=== PATIENT | female | born 1950 | race Caucasian/White ===

== ENCOUNTER 2020-10-13 10:46 | Outpatient (CLI) | payer MEDICARE, SELFPAY ==
--- NOTE | ~2020-10-13 | MM_ITS ---
EXAMINATION: MM screening bertha BI w nataliya HISTORY: Screening mammogram TECHNIQUE: Craniocaudal and mediolateral oblique 3-D tomosynthesis images were obtained and synthetic 2-D images were generated. CAD analysis was submitted and interpreted. COMPARISON: August 24, 2018 diagnostic left digital mammogram and limited left breast ultrasound 06/12/2018 bilateral digital screening mammogram BREAST PARENCHYMAL COMPOSITION: There are scattered areas of fibroglandular density. FINDINGS: Benign appearing stable right axillary tail lymph and stable benign-appearing likely intram ammary lymph node in the posterior upper outer left breast, both unchanged since 06/12/2018. Scattered bilateral benign calcifications. There is no evidence of suspicious mass, calcification, or architectural distortion to suggest malig eli in either breast. There has been no suspicious interval change. IMPRESSION: 1. No mammographic evidence of malignancy. 2. Recommend routine screening mammography in one year. BI-RADS Category 2: Benign finding(s). Reviewed, dictated and finalized at location A.
--- NOTE | ~2020-10-13 | DEXA_ITS ---
Bone Density Report Name: Rachael Segovia Age: 70 Sex: Female Ethnicity: White Date of : 1950 Indication: postmenopausal; hysterectomy; Referring Provider: DANIEL BLACK Study: Bone densitometry was performed. Exam Date: October 13, 2020 Accession number: [id number] Bone Density: Region BMD T-score Z-score Classification AP Spine (L1-L4) 1.038 -0.1 2.2 Normal Femoral Neck (Left) 0.748 -0.9 1.0 Normal Total Hip (Left) 0.926 -0.1 1.5 Normal Total Hip Bilateral Avg 0.920 -0.2 1.5 Normal Femoral Neck (Right) 0.750 -0.9 1.0 Normal Total Hip (Right) 0.912 -0.2 1.4 Normal World Health Organization criteria for BMD impression classify patients as: Normal (T-score at or above -1.0), Osteopenia (T-score between -1.0 and -2.5), or Osteoporosis (T-score at or below -2.5). 10-year Fracture Risk: FRAX not reported because: All T-scores for Spine Total, Hip Total, Femoral Neck at or above -1.0 Previous Exams: Region Exam Age BMD T-score BMD Change BMD Change Date g/cm2 vs Baseline vs Previous AP Spine(L1-L4) 10/13/2020 70 1.038 -0.1 0.055(5.6%)* 0.055(5.6%)* 06/12/2018 67 0.983 -0.6 Total Hip(Left) 10/13/2020 70 0.926 -0.1 -0.002(-0.2%) -0.002(-0.2%) 06/12/2018 67 0.928 -0.1 Total Hip(Right) 10/13/2020 70 0.912 -0.2 -0.029(-3.0%)* -0.029(-3.0%)* 06/12/2018 67 0.940 0.0 *Denotes significance at 95% confidence level, LSC for AP Spine = 0.022 g/cm2, LSC for Total Hip = 0.027 g/cm2 Clinical Information Provided by Patient: Has the following medical conditions: Hysterectomy Patient maximum height was 62 Menopause Age: 43 Drinks caffeinated beverages Onset of menses at age 11 Number of children 2 Impression: The patient has normal bone mass. The BMD for the Total Hip(Right) decreased, changing by -3.0% since the last DXA exam. Discussion: BONE DENSITY IS ABOVE THE MINIMUM DESIRABLE LEVEL AT ALL SKELETAL SITES TESTED. This patient?s bone mineral density is above the minimum desirable level (T-score -1.0 or better) at all sites measured. The patient should follow a healthful lifestyle (good nutrition with adequate calcium and vitamin D, and appropriate weight-bearing exercise). Follow-Up: Consider repeating this study in 3 to 4 years to reassess this patient's status, or sooner if there is some new clinical indication. Reported by: [facility] on 10/13/2020 11:15:00 AM. Reviewe
--- NOTE | ~2020-10-13 | XR_ITS ---
XR hip BI 2V w AP pelvis DATE: 10/13/2020 12:12 INDICATION: Right greater than left hip pain for past 2 to 3 years TECHNIQUE: AP pelvis. AP and lateral views of each hip. COMPARISON: None FINDINGS: There is minimal levoscoliosis of the lumbar spine. No pelvic fracture or bone destruction. The pubic symphysis and sacroiliac joints are intact. There is prominent bilateral hip osteoarthritis, more severe on the right, including joint space narr owing and spurring. No fracture or dislocation, avascular necrosis or bone destruction of either hip is evident. IMPRESSION: Prominent right greater than left hip osteoarthritis Reviewed, dictated and finalized at location A.
== END 2020-10-13 10:47 | disposition home or self-care (01) ==
PROVIDERS: PCP Emergency Medicine; Visit Provider Emergency Medicine
DX: Z12.31 Encounter for screening mammogram for malignant neoplasm of breast (principal); Z78.0 Asymptomatic menopausal state; M16.0 Bilateral primary osteoarthritis of hip
CPT/HCPCS: 73521; 77063; 77067; 77080

== ENCOUNTER 2022-03-12 00:17 | Day surgery (SDC) | payer MEDICARE, SELFPAY ==
[2022-02-26 14:00] VITALS: BMI 27.3
[2022-03-12 11:12] VITALS: BP 143/82; PULSE 93; RESP 18; TEMP 36.7; O2SAT 100; BMI 26.1
--- NOTE | 2022-03-12 11:24 | PM.HPGS ---
History of Present Illness History of Present Illness Consent: Risks, benefits, and alternatives have been discussed and questions answered. Patient agrees to proceed with procedure. Chief complaint: positive cologuard Narrative: Rachael Segovia is a 71 year old female here for first colonoscopy, had + cologuard Review of Systems Constitutional: Constitutional: Denies headache(s) and Denies weakness Eyes: Eyes: Denies blurry vision ENT: Reports Normal hearing present, Denies headache(s) and Denies neck pain Cardiovascular: Cardiovascular: Denies chest pain and Denies dyspnea Respiratory: Respiratory: Denies dyspnea Gastrointestinal: Gastrointestinal: Reports no additional gastrointestinal complaints Genitourinary: Genitourinary: Denies dysuria Musculoskeletal: Musculoskeletal: Denies neck pain Integumentary/Breasts: Skin/Breast: Denies dry skin Neurologic: Reports Normal hearing present, Denies headache(s) and Denies weakness Psychiatric: Psychiatric: Denies anxiety Endocrine: Endocrine: Denies change in body appearance Hematologic/Lymphatic: Hematologic/Lymphatic: Denies easy bleeding Allergic/Immunologic: Allergic/Immunologic: Denies urticaria PMFSH Past Medical History Medical History (Updated 02/03/22 @ 10:21 by Kajal Ramos) Vitamin D deficiency disease Social History Social History Smoking status: Never smoker Alcohol intake: never Substance use type: does not use Living arrangements: with family Spiritual care concerns: No Meds Home Medications and Allergies Home Medications Medication Instructions Recorded Confirmed Type cholecalciferol (vitamin D3) 1,250 50,000 unit PO WEEKLY 09/01/19 02/26/22 History mcg (50,000 unit) tablet Allergies Allergy/AdvReac Type Severity Reaction Status Date / Time No Known Allergies Allergy Verified 03/12/22 11:25 Exam Const: General: comfortable and no acute distress HENMT: General nose exam: Normal nares present Eyes: General: appearance normal, both eyes and all related structures Neck: Neck: no JVD Resp: Auscultation: clear to auscultation bilaterally Cardio: Rate: regular rate Rhythm: regular rhythm GI: Inspection: non-distended GI Palp: Yes Soft to palpation Skin: General skin exam: normal color Neuro: General: gait normal Speech: normal speech Extrem: General: normal to inspection Psych: Mental Status: mental status grossly normal Assessment and Plan Assessment and plan (1) Positive colorectal cancer screening using Cologuard test: Code(s): R19.5 - Other fecal abnormalities Status: Acute Assessment and Plan: colonoscopy
[2022-03-12] MEDS: LACTATED RINGERS 1,000 ML 150 ML IV CONT (11:33)
--- NOTE | 2022-03-12 11:39 | WPDANESEPPF ---
Anes - Initial Pre Proc Eval Procedure: Operation Date: 03/12/22 12:30 Proposed Procedures p Colonoscopy - Umer Panchal MD Date/Time: 03/12/22 11:39 Surgeon: Umer Panchal MD Pre Op Diagnosis: positive cologuard Patient Data Age: 71 Gender: F Height: 1.57 m Weight: 64.8 kg Last Vital Signs Temp 36.7 C 03/12/22 11:12 Pulse 93 03/12/22 11:12 Resp 18 03/12/22 11:12 BP 143/82 H 03/12/22 11:12 Pulse Ox 100 03/12/22 11:12 O2 Del Method Room Air 03/12/22 11:12 Allergies Allergy/AdvReac Type Severity Reaction Status Date / Time No Known Allergies Allergy Verified 03/12/22 11:25 Home Medications Medication Instructions Recorded Confirmed Type cholecalciferol (vitamin D3) 1,250 50,000 unit PO WEEKLY 09/01/19 03/12/22 History mcg (50,000 unit) tablet Patient hx anesthesia problems: none Family hx anesthesia problems: none Results Review: All pre-operative results and documents have been reviewed as part of the pre-operative evaluation. [facility] Past Medical History Medical History (Updated 03/12/22 @ 11:39 by Daniele Bartlett MD) Overweight Vitamin D deficiency disease Surgical History Surgical History (Updated 03/12/22 @ 11:40 by Daniele Bartlett MD) H/O: hysterectomy Social History Social History Smoking status: Never smoker Alcohol intake: never Substance use type: does not use Living arrangements: with family Spiritual care concerns: No Anes - Eval Final PreProcedure Day of Procedure 03/12/22 11:39 Patient weight: overweight Heart: regular rate and rhythm Lungs: clear to auscultation Airway: Mallampati scale class II Neurological: alert and oriented Last oral intake: >/= 8 hours ASA classification: II Emergent: no Anesthetic plan: proceed Anesthesia type and monitoring: general GIVS and standard monitoring Results Review: All pre-operative results and documents have been reviewed as part of the pre-operative evaluation. Informed Consent: The patient's anesthetic plan and its attendant risks and benefits were discussed with the patient/family/POA. Questions were solicited and answers provided to the satisfaction of the patient/family/POA.
[2022-03-12 12:00] VITALS: BP 110/57; PULSE 80; RESP 15; O2SAT 98
[2022-03-12 12:14] VITALS: BP 108/91; PULSE 80; RESP 17; O2SAT 97
[2022-03-12 12:24] VITALS: BP 102/84; PULSE 78; RESP 17; O2SAT 97
== END 2022-03-12 12:33 | disposition home or self-care (01) ==
PROVIDERS: PCP Emergency Medicine; Visit Provider Internal Medicine Gastroenterology
PROC: 0DJD8ZZ Inspection of Lower Intestinal Tract, Via Natural or Artificial Opening Endoscopic (ICD-10-PCS; CPT 45378; principal; 2022-03-12 12:30)
DX: R19.5 Other fecal abnormalities (principal); K57.30 Diverticulosis of large intestine without perforation or abscess without bleeding; K64.8 Other hemorrhoids; E55.9 Vitamin D deficiency, unspecified
CPT/HCPCS: 45378; J2704; J7120

== ENCOUNTER 2022-04-03 13:11 | Outpatient (CLI) | payer MEDICARE, SELFPAY ==
--- NOTE | ~2022-04-03 | XR_ITS ---
XR_CERV2-3V_CR 04/03/2022 13:35 Indication: Neck pain Procedure: 3 views of the cervical spine Comparison: No prior studies for comparison. Findings: There are degenerative changes at C3-4 and C5-6 with endplate degenerative change. There is moderate multilevel uncinate and facet hypertrophy. Odontoid process is normal. Lung apices are norm al. No prevertebral soft tissue swelling. No acute fracture or traumatic malalignment. Impression: 1: Severe cervical spondylosis. Reviewed, dictated and finalized at location A. Impression: 1: Severe cervical spondylosis.
--- NOTE | ~2022-04-03 | XR_ITS ---
XR hip BI 2V w AP pelvis 04/03/2022 13:35 Indication: Hip pain. Procedure: AP pelvis and 2 views each hip Comparison: 10/13/2020 Findings: There is severe bilateral osteoarthritis of the hips, right greater than left. There is sub chondral cyst formation in the right femoral head, consistent with degenerative change. No acute frac ture or traumatic malalignment. Sacral foramen are symmetric. Pelvic rings are intact. No significant soft tissue abnormality. No foreign bodies. Impression: 1: Severe osteoarthritis of the hips. Reviewed, dictated and finalized at location A. Impression: 1: Severe osteoarthritis of the hips.
--- NOTE | ~2022-04-03 | XR_ITS ---
XR lumbar spine 2-3V 04/03/2022 13:35 Indication: Back pain Procedure: 3 views lumbar spine Comparison: No prior studies Findings: There is disc narrowing at all lumbar levels. There is moderate facet hypertrophy at L4-5 a nd L5-S1. No acute fracture or traumatic malalignment. Levoscoliosis. Sacral foramen are symmetric. T here are pelvic phleboliths. Impression: 1: Moderate lumbar spondylosis. Reviewed, dictated and finalized at location A. Impression: 1: Moderate lumbar spondylosis.
== END 2022-04-03 13:12 | disposition home or self-care (01) ==
LOC: ANHIMG 13:16
PROVIDERS: PCP Emergency Medicine; Visit Provider Emergency Medicine
DX: G89.29 Other chronic pain (principal); M54.9 Dorsalgia, unspecified; M25.559 Pain in unspecified hip; M54.2 Cervicalgia; M47.816 Spondylosis without myelopathy or radiculopathy, lumbar region; M16.0 Bilateral primary osteoarthritis of hip; M47.812 Spondylosis without myelopathy or radiculopathy, cervical region
CPT/HCPCS: 72040; 72100; 73521

== ENCOUNTER 2022-09-10 11:41 | Outpatient (CLI) | payer MEDICARE, SELFPAY ==
--- NOTE | ~2022-09-10 | MM_ITS ---
EXAMINATION: MM screening bertha BI w nataliya HISTORY: Screening mammogram TECHNIQUE: Craniocaudal and mediolateral oblique 3-D tomosynthesis images were obtained and synthetic 2-D images were generated. CAD analysis was submitted and interpreted. COMPARISON: 10/13/2020 bilateral screening mammogram 08/24/2018 diagnostic left mammogram and limited left breast ultrasound BREAST PARENCHYMAL COMPOSITION: There are scattered areas of fibroglandular density. FINDINGS: Occasional bilateral benign calcifications and stable circumscribed small benign-appearing nodular densities. There is no evidence of suspicious mass, calcification, or architectural distortio n to suggest malignancy in either breast. There has been no suspicious interval change. IMPRESSION: 1. No mammographic evidence of malignancy. 2. Recommend routine screening mammography in one year. BI-RADS Category 2: Benign finding(s). Reviewed, dictated and finalized at location A.
== END 2022-09-10 11:42 | disposition home or self-care (01) ==
LOC: ANHIMG 11:42
PROVIDERS: PCP Emergency Medicine; Visit Provider Emergency Medicine
DX: Z12.31 Encounter for screening mammogram for malignant neoplasm of breast (principal)
CPT/HCPCS: 77063; 77067

== ENCOUNTER 2022-11-13 12:55 | Outpatient (CLI) | payer MEDICARE, SELFPAY ==
--- NOTE | ~2022-11-13 | XR_ITS ---
EXAMINATION: XR lg joint inject/asp w image DATE: 11/13/2022 13:52 INDICATION: Right hip arthritis. TECHNIQUE: A time-out was performed to verify the patient's name, date of , and procedure to b e performed. The procedure including the risks, benefits, and alternatives was discussed with the pat ient. Risks discussed included bleeding and infection. The patient understood the risks and agreed to proceed. The skin overlying the right hip joint was prepped and draped in usual sterile fashion. A nesthetic was administered with 1% lidocaine subcutaneously. A 22 G needle was advanced under fluoro scopic guidance into the joint. Subsequently, injectate consisting of 2 mL 0.5% bupivacaine and 1 mL 80 mg/mL Depo-Medrol was instilled. The needle was removed and the entry site was cleaned and dress ed. There were no immediate complications. Fluoroscopy exposure time was 0.1 minutes. The total numb er of images was 1. FINDINGS: Real-time fluoroscopy demonstrates the needle in the right hip joint. Patient's pain prior to procedure:2/10. Patient's pain following the procedure: 0/10. IMPRESSION: 1. Fluoroscopy guided right hip joint injection of local anesthetic and steroid with decrease in the patient's presenting pain. Reviewed, dictated and finalized at location A.
== END 2022-11-13 12:56 | disposition home or self-care (01) ==
PROVIDERS: PCP Emergency Medicine; Visit Provider Nurse Practitioner Family
DX: M16.11 Unilateral primary osteoarthritis, right hip (principal)
CPT/HCPCS: 20610; 77002; J1040

== ENCOUNTER 2023-05-01 08:10 | Outpatient (CLI) | payer MEDICARE, SELFPAY ==
--- NOTE | ~2023-05-01 | XR_ITS ---
EXAMINATION: XR lg joint inject/asp w image, XR lg joint inject/asp add DATE: 05/01/2023 09:19 INDICATION: Bilateral hip osteoarthritis with pain TECHNIQUE: A time-out was performed to verify the patient's name, date of , and procedure to b e performed. The procedure including the risks, benefits, and alternatives was discussed with the pat ient. Risks discussed included bleeding and infection. The patient understood the risks and agreed to proceed. Attention was first turned to the right hip. The skin overlying the right hip joint was pre pped and draped in usual sterile fashion. Anesthetic was administered with 1% lidocaine subcutaneous ly. A 22 G needle was advanced under fluoroscopic guidance into the joint. Injection of 1 mL of Omn ipaque 240 confirmed intra-articular position of the needle. Subsequently, injectate consisting of 3 mL of a 2:1 mixture of 0.5% Marcaine: 80 mg/mL Depo-Medrol for a total dosage of 80 mg Depo-Medrol w as instilled. Washout of contrast was seen confirming intra-articular administration. The needle was removed and the entry site was cleaned and dressed. Attention was then turned to the left hip. The skin overlying the left hip joint was prepped and drap ed in usual sterile fashion. Anesthetic was administered with 1% lidocaine subcutaneously. A 22 G n eedle was advanced under fluoroscopic guidance into the joint. Injection of 1 mL of Omnipaque 240 co nfirmed intra-articular position of the needle. Subsequently, injectate consisting of 3 mL of a 2:1 mixture of 0.5% Marcaine: 80 mg/mL Depo-Medrol for a total dosage of 80 mg Depo-Medrol was instilled. Washout of contrast was seen confirming intra-articular administration. The needle was removed and t he entry site was cleaned and dressed. There were no immediate complications. Fluoroscopy exposure ti me for both procedures was 0.1 minutes. The total number of images was 4. Total DAP was 0.366 Gycm^2. FINDINGS: Real-time fluoroscopy demonstrates the needle in first the right hip joint and subsequently in the left hip joint. Patient's pain prior to procedure:8/10. Patient's pain following the procedu re: 0/10. IMPRESSION: 1. Successful bilateral hip joint injections of local anesthetic and steroid with decrease in the pat ient's presenting pain. Reviewed, dictated and finalized at location A. IMPRESSION: 1. Successful bilateral hip joint injections of local anesthetic and steroid wi th decrease in the patient's presenting pain.
== END 2023-05-01 08:11 | disposition home or self-care (01) ==
PROVIDERS: PCP Emergency Medicine; Visit Provider Nurse Practitioner Family
DX: M16.12 Unilateral primary osteoarthritis, left hip (principal)
CPT/HCPCS: 20610; 77002; J1040; Q9966

== ENCOUNTER 2023-08-17 08:27 | Outpatient (CLI) | payer MEDICARE, SELFPAY ==
--- NOTE | ~2023-08-17 | XR_ITS ---
EXAMINATION: XR lg joint inject/asp w image, XR lg joint inject/asp add DATE: 08/17/2023 09:31 INDICATION: Bilateral hip osteoarthritis TECHNIQUE: A time-out was performed to verify the patient's name, date of , and procedure to b e performed. The procedure including the risks, benefits, and alternatives was discussed with the pat ient. Risks discussed included bleeding and infection. The patient understood the risks and agreed to proceed. Attention was first turned to the right hip. The skin overlying the right hip joint was pre pped and draped in usual sterile fashion. Anesthetic was administered with 1% lidocaine subcutaneous ly. A 22 G needle was advanced under fluoroscopic guidance into the joint. Injection of 1 mL of Omn ipaque 240 confirmed intra-articular position of the needle. Subsequently, injectate consisting of 3 mL of a 2:1 mixture of 0.5% bupivacaine: 80 mg/mL Depo-Medrol for a total dosage of 80 mg Depo-Medro l was instilled. Washout of contrast was seen confirming intra-articular administration. The needle w as removed and the entry site was cleaned and dressed. Attention was then turned to the left hip. The skin overlying the left hip joint was prepped and drap ed in usual sterile fashion. Anesthetic was administered with 1% lidocaine subcutaneously. A 22 G n eedle was advanced under fluoroscopic guidance into the joint. Injection of 1 mL of Omnipaque 240 co nfirmed intra-articular position of the needle. Subsequently, injectate consisting of 3 mL of a 2:1 mixture of 0.5% bupivacaine: 80 mg/mL Depo-Medrol for a total dosage of 80 mg Depo-Medrol was instill ed. Washout of contrast was seen confirming intra-articular administration. The needle was removed an d the entry site was cleaned and dressed. There were no immediate complications. Fluoroscopy exposure time for the combined procedures was 0.1 minutes. The total number of images was 4. FINDINGS: Real-time fluoroscopy demonstrates the needle and contrast in the right hip joint and subse quently in the left hip joint. Patient's pain prior to procedure:03/08. Patient's pain following the procedure: 09/05. IMPRESSION: 1. Successful right hip joint injection of local anesthetic and steroid with decrease in the patient' s presenting pain. 2. Successful left hip joint injection of local anesthetic and steroid with decrease in the patient's presenting pain. Reviewed, dictated and finalized at location A. OTIONS SPECIALIST IMPRESSION: 1. Successful right hip joint injection of local anesthetic and steroid with de crease in the patient's presenting pain. 2. Successful left hip joint injection of local anesthetic and steroid with dec rease in the patient's presenting pain.
== END 2023-08-17 08:28 | disposition home or self-care (01) ==
PROVIDERS: PCP Emergency Medicine; Visit Provider Nurse Practitioner Family
DX: M16.0 Bilateral primary osteoarthritis of hip (principal)
CPT/HCPCS: 20610; 77002; J1040; Q9966

== ENCOUNTER 2024-01-26 13:22 | Outpatient (CLI) | payer MEDICARE, SELFPAY ==
--- NOTE | ~2024-01-26 | XR_ITS ---
EXAMINATION: XR lg joint inject/asp w image DATE: 01/26/2024 14:13 INDICATION: Bilateral hip arthritis. TECHNIQUE: A time-out was performed to verify the patient's name, date of , and procedure to b e performed. The procedure including the risks, benefits, and alternatives was discussed with the pat ient. Risks discussed included bleeding and infection. The patient understood the risks and agreed to proceed. The skin overlying the right hip joint was prepped and draped in usual sterile fashion. A nesthetic was administered with 1% lidocaine subcutaneously. A 22 G needle was advanced under fluoro scopic guidance into the joint. Subsequently, injectate consisting of 2 mL 0.5% bupivacaine and 1 mL 80 mg/mL Depo-Medrol was instilled. The needle was removed and the entry site was cleaned and dress ed. There were no immediate complications. Fluoroscopy exposure time was 0.1 minutes. The total numb er of images was 1. FINDINGS: Real-time fluoroscopy demonstrates the needle in the right hip joint. IMPRESSION: 1. Fluoroscopy guided right hip joint injection of local anesthetic and steroid. Reviewed, dictated and finalized at location A. IMPRESSION: 1. Fluoroscopy guided right hip joint injection of local anesthetic and steroid .
--- NOTE | ~2024-01-26 | XR_ITS ---
EXAMINATION: XR lg joint inject/asp add DATE: 01/26/2024 14:42 INDICATION: Bilateral hip arthritis. Left hip pain. TECHNIQUE: A time-out was performed to verify the patient's name, date of , and procedure to b e performed. The procedure including the risks, benefits, and alternatives was discussed with the pat ient. Risks discussed included bleeding and infection. The patient understood the risks and agreed to proceed. The skin overlying the left hip joint was prepped and draped in usual sterile fashion. An esthetic was administered with 1% lidocaine subcutaneously. A 22 G needle was advanced under fluoros copic guidance into the joint. Subsequently, injectate consisting of 2 mL 0.5% bupivacaine and 1 mL 80 mg/mL Depo-Medrol was instilled. The needle was removed and the entry site was cleaned and dresse d. There were no immediate complications. Fluoroscopy exposure time was 0.1 minutes. The total numbe r of images was 1. FINDINGS: Real-time fluoroscopy demonstrates the needle in the left hip joint. IMPRESSION: 1. Fluoroscopy guided left hip joint injection of local anesthetic and steroid. Reviewed, dictated and finalized at location A.
== END 2024-01-26 13:23 | disposition home or self-care (01) ==
PROVIDERS: PCP Emergency Medicine; Visit Provider Nurse Practitioner Family
DX: M16.11 Unilateral primary osteoarthritis, right hip (principal); M16.12 Unilateral primary osteoarthritis, left hip
CPT/HCPCS: 20610; 77002; J1010

== ENCOUNTER 2024-06-03 11:24 | Outpatient (CLI) | payer MEDICARE, SELFPAY ==
--- NOTE | 2024-06-03 11:59 | ECG_ITS ---
Test Date: 2024-06-03 12:06:36 Measurements Intervals [place] Rate: 93 P: 55 LA: 162 QRS: 43 QRSD: 112 T: 30 QT: 347 QTc: 433 Interpretive Statements SINUS RHYTHM LOW QRS VOLTAGE IN PRECORDIAL LEADS [QRS DEFLECTION < 1.0 mV IN CHEST LEADS] MODERATE INTRAVENTRICULAR CONDUCTION DELAY [110+ ms QRS DURATION] No previous ECG available for comparison Electronically Signed On 06-03-2024 13:01:35 PRINTER OPERATOR by Morgan Colin M.D.
[2024-06-03 12:11] LABS: Basophils Percent Auto 0.6 % (0.2-1.2); Eosinophils Absolute Auto 0.1 K/mm3 (0-0.3); Eosinophils Percent Auto 1.3 % (0-4.4); Hematocrit 41.1 % (37.0-47.0); Hemoglobin 13.2 g/dL (12.0-15.0); Immature Granulocyte Absolute 0.03 K/mm3 (0.00-0.031); Immature Granulocyte Percent A 0.4 % (0-0.5); Lymphocytes Absolute Auto 1.95 K/mm3 (0.9-3.2); Mean Corpuscular HGB Conc 32.1 g/dl (32-36); Mean Corpuscular Hemoglobin 29.1 pg (26-34); Mean Corpuscular Volume 90.5 fl (80-100); Mean Platelet Volume 9.5 fl (7.4-10.4); Monocytes Absolute Auto 0.4 K/mm3 (0.1-0.6); Monocytes Percent Auto 5.9 % (2.6-8.5); Neutrophils Absolute Auto 4.4 K/mm3 (1.3-6.7); Neutrophils Percent Auto 63.8 % (45.5-73.1); Platelet Count Result 257 k/mm3 (150-375); Red Blood Count 4.54 M/mm3 (4.2-5.4)
[2024-06-03 12:32] LABS: Add Urine Microscopic? YES; Appearance Urine Clear (Clear); Bacteria Urine 3+ /hpf; Bilirubin Urine Negative (Negative); Blood Urine Negative (Negative); Color Urine Yellow (Yellow); Glucose Urine UA Negative (Negative); Ketones Urine Negative (Negative); Leukocyte Esterase Ur 2+ LEU/UL (Negative); Nitrate Urine Negative (Negative); Non Pathogenic Casts 0-2; Protein Urine Negative (Negative); RBC Urine 0-2 /hpf (0-2); Specific Grav Ur 1.024 (1.001-1.035); Squamous Epithelial Cell Urine Occasional /hpf (Few); Urobilinogen Urine 0.2 mg/dL (<2.0); WBC Urine 21-50 /hpf (0-3)
[2024-06-03 12:34] LABS: Anion Gap 4 mmol/L (4-12); Blood Urea Nitrogen 20 mg/dL (7-17); Calcium 9.8 mg/dL (8.4-10.2); Carbon Dioxide 29 mmol/L (22-30); Chloride 107 mmol/L (98-107); Estimated Glomerular Filt Rate > 60; Glucose 97 mg/dL (65-110); Potassium 4.2 mmol/L (3.4-5.0); Sodium 140 mmol/L (137-145)
== END 2024-06-03 11:25 | disposition home or self-care (01) ==
LOC: ANHLAB 11:25
PROVIDERS: PCP Emergency Medicine; Visit Provider Nurse Practitioner Family
DX: M25.551 Pain in right hip (principal); M25.552 Pain in left hip; R94.31 Abnormal electrocardiogram [ECG] [EKG]; E78.00 Pure hypercholesterolemia, unspecified; E55.9 Vitamin D deficiency, unspecified; I10 Essential (primary) hypertension; R53.83 Other fatigue
CPT/HCPCS: 36415; 80048; 81001; 85025; 87077; 87086; 87186; 93005

== ENCOUNTER 2024-06-27 13:33 | Outpatient (CLI) | payer MEDICARE, SELFPAY ==
[2024-06-27 14:18] LABS: Add Urine Microscopic? YES; Appearance Urine Clear (Clear); Bacteria Urine None Seen /hpf; Bilirubin Urine Negative (Negative); Blood Urine Negative (Negative); Color Urine Yellow (Yellow); Glucose Urine UA Negative (Negative); Ketones Urine Negative (Negative); Leukocyte Esterase Ur 1+ LEU/UL (Negative); Need Manual Microscopic Reviewed; Nitrate Urine Negative (Negative); Non Pathogenic Casts 0-2; Protein Urine Negative (Negative); RBC Urine 0-2 /hpf (0-2); Specific Grav Ur 1.019 (1.001-1.035); Squamous Epithelial Cell Urine Few /hpf (Few); WBC Urine 0-5 /hpf (0-3); pH Urine 5.5 (5.0-9.0)
== END 2024-06-27 13:34 | disposition home or self-care (01) ==
LOC: ANHLAB 13:35
PROVIDERS: PCP Emergency Medicine; Visit Provider Emergency Medicine
DX: N39.0 Urinary tract infection, site not specified (principal)
CPT/HCPCS: 81001; 87086

== ENCOUNTER 2024-07-16 11:20 | Outpatient (CLI) | payer MEDICARE, SELFPAY ==
[2024-07-16 11:40] LABS: Add Urine Microscopic? YES; Appearance Urine Clear (Clear); Bacteria Urine None Seen /hpf; Bilirubin Urine Negative (Negative); Blood Urine Negative (Negative); Color Urine Yellow (Yellow); Glucose Urine UA Negative (Negative); Ketones Urine Negative (Negative); Leukocyte Esterase Ur 2+ LEU/UL (Negative); Nitrate Urine Negative (Negative); Non Pathogenic Casts 0-2; Protein Urine Negative (Negative); RBC Urine 0-2 /hpf (0-2); Specific Grav Ur 1.014 (1.001-1.035); Squamous Epithelial Cell Urine Occasional /hpf (Few); Urobilinogen Urine 0.2 mg/dL (<2.0); pH Urine 5.5 (5.0-9.0)
--- OUTSIDE RECORDS SUMMARY | 2024-07-21 08:54 | XMS_ITS | Continuity of Care Document ---
Author Organization [facility] Address [address] [place] [address] [facility] [address] [place] [address] Phone Care Team Providers Care Forensic Analyst Name Role Phone Dewey Emery Unavailable Unavailable Advance Directives Directive Yes / No Effective Date File Name No Information Encounters Encounter Description Practice Location Reason(s) For Visit Diagnoses Date Provider Providers Copied on Encounter [facility], [address] [place] [address] [address] [place], [place], [id number], [place] tel:[phone] [facility] No Information October-0 7-200 3 Doisy Edward. [address] , [address], [place], [address], [place]. tel:[phone] Family History Family Member Type Diagnosis Age At Onset No Information Payers Payer name Insurance type Covered democrat ID Authoriza tion(s) [employer] [place] [id number] Social History Type Description Quantity Date Captured Comments Sex Female Smoking Status No Information Chief Complaint And Reason For Visit No Information Reason For Referral Reason For Referral No Information History Of Present Illness Encounter Date Complaint History Of Prese nt Illness No Information Functional Status Date Functional Assessmen t No Information Instructions Date Instruction Additional Infor mation No Information Assessments Type Assessment Date No Information Patient Care Teams Name Effective Dates (start - stop) Status Members No Information
== END 2024-07-16 11:21 | disposition home or self-care (01) ==
LOC: ANHLAB 11:21
PROVIDERS: PCP Emergency Medicine; Visit Provider Emergency Medicine
DX: N39.0 Urinary tract infection, site not specified (principal)
CPT/HCPCS: 81001; 87086

== ENCOUNTER 2024-09-01 11:49 | Outpatient (CLI) | payer MEDICARE, SELFPAY ==
[2024-09-01 13:20] LABS: Add Urine Microscopic? NO; Appearance Urine Clear (Clear); Bilirubin Urine Negative (Negative); Blood Urine Negative (Negative); Color Urine Yellow (Yellow); Glucose Urine UA Negative (Negative); Ketones Urine Negative (Negative); Leukocyte Esterase Ur Negative LEU/UL (Negative); Nitrate Urine Negative (Negative); Protein Urine Negative (Negative); Specific Grav Ur 1.017 (1.001-1.035); Urobilinogen Urine 0.2 mg/dL (<2.0); pH Urine 5.5 (5.0-9.0)
[2024-09-01 13:21] LABS: Basophils Percent Auto 0.5 % (0.2-1.2); Eosinophils Absolute Auto 0.1 K/mm3 (0-0.3); Eosinophils Percent Auto 0.8 % (0-4.4); Hematocrit 42.1 % (37.0-47.0); Hemoglobin 13.3 g/dL (12.0-15.0); Immature Granulocyte Absolute 0.03 K/mm3 (0.00-0.031); Immature Granulocyte Percent A 0.4 % (0-0.5); Lymphocytes Absolute Auto 1.67 K/mm3 (0.9-3.2); Lymphocytes Percent Auto 22.7 % (18.3-44.2); Mean Corpuscular HGB Conc 31.6 g/dl (32-36); Mean Corpuscular Hemoglobin 27.6 pg (26-34); Mean Corpuscular Volume 87.3 fl (80-100); Mean Platelet Volume 9.3 fl (7.4-10.4); Monocytes Absolute Auto 0.5 K/mm3 (0.1-0.6); Monocytes Percent Auto 6.1 % (2.6-8.5); Neutrophils Absolute Auto 5.1 K/mm3 (1.3-6.7); Neutrophils Percent Auto 69.5 % (45.5-73.1); Platelet Count Result 271 k/mm3 (150-375); Red Blood Count 4.82 M/mm3 (4.2-5.4); Red Cell Distribution Width 12.1 % (11.5-14.5); White Blood Count 7.4 K/mm3 (4.5-10.0)
--- OUTSIDE RECORDS SUMMARY | 2024-09-01 13:22 | XMS_ITS | Continuity of Care Document ---
Author Organization [facility] Address [address] [place] [address] Exec utive [facility] [address] [place] [address] Phone Care Team Providers Care Dental Hygiene Professor Name Role Phone Dewey Emery Unavailable Unavailable Advance Directives Directive Yes / No Effective Date File Name No Information Encounters Encounter Description Practice Location Reason(s) For Visit Diagnoses Date Provider Providers Copied on Encounter [facility], [address] [place] [address] [address], [place], [place], [id number], [place] tel:[phone] [facility] No Information October-0 7-200 3 Doisy Edward. [address] , [address], [place], [address], [place]. tel:[phone] Family History Family Member Type Diagnosis Age At Onset No Information Payers Payer name Insurance type Covered constitution party ID Authoriza tion(s) [place] Commercial BL [id number] Social History Type Description Quantity Date Captured [...]
[2024-09-01 13:29] LABS: INR 0.9; Partial Thromboplastin Time 23.1 Seconds (22.3-36.8); Prothrombin Time 12.6 Seconds (11.1-14.7)
[2024-09-01 13:37] LABS: Urine Cotinine NEGATIVE
[2024-09-01 13:44] LABS: Albumin Level 4.5 g/dL (3.5-5.1); Anion Gap 10 mmol/L (4-12); Blood Urea Nitrogen 18 mg/dL (7-17); Calcium 9.8 mg/dL (8.4-10.2); Carbon Dioxide 27 mmol/L (22-30); Chloride 103 mmol/L (98-107); Estimated Glomerular Filt Rate > 60; Glucose 101 mg/dL (65-110); Potassium 4.3 mmol/L (3.4-5.0); Sodium 140 mmol/L (137-145)
[2024-09-01 14:05] LABS: Hemoglobin A1C 5.1 % (<5.7)
[2024-09-01 14:32] LABS: MRSA (PCR) NOT DETECTED (NOT DETECTE)
== END 2024-09-01 11:50 | disposition home or self-care (01) ==
LOC: ANHSURGERY 11:55
PROVIDERS: PCP Emergency Medicine; Visit Provider Orthopaedic Surgery
DX: Z01.812 Encounter for preprocedural laboratory examination (principal); M16.11 Unilateral primary osteoarthritis, right hip
CPT/HCPCS: 80048; 80307; 81003; 82040; 83036; 85025; 85610; 85730; 87641

== ENCOUNTER 2024-09-21 00:10 | Day surgery (SDC) | payer MEDICARE, SELFPAY ==
[2024-09-01 12:11] VITALS: BP 148/93; PULSE 90; RESP 16; TEMP 37.2; O2SAT 98; BMI 27.2
--- NOTE | 2024-09-01 12:32 | PC.NURSE ---
Report to the Outpatient Waiting Room, entrance under the green pavilion located off [facility], at time __0830am on date __09/21/24 . Planned Procedure Time: ___1030am .? Time changes happen often and if your time is changed the preop area will call you the afternoon before. - You and your visitor will be asked to self-screen and do not enter if you have any COVID symptoms. Please call surgeon if you need to reschedule. - A mask is optional within the hospital at this time. Patients may have clear liquids (water, carbonated beverages, clear teas, apple juice) until 3 hours prior to surgery with a maximum of 20 ounces. - No food from midnight until time of surgery and no smoking, or chewing tobacco (or any form of nicotine). No chewing gum, candy or mints. (0730am) Take only the following medications with a SIP of water on the morning of surgery: ___Tylenol if needed DO NOT STOP ANY OF YOUR OTHER PRESCRIPTION MEDICATIONS PRIOR TO SURGERY EXCEPT THE FOLLOWING Hold all vitamins and supplements for 3 days per anesthesiologist. Medications to discontinue per physician ____Meloxicam per Dr Santiago - 7 days prior Date to take last dose 09/12/24 Please no make-up, nail south african, hairspray, perfume, deodorant, or body powder the day of surgery.? No jewelry (including any body piercings) or valuables the day of surgery, leave them at home.? Please take a shower or bath the night before, or the morning of, surgery with an antibacterial soap.?HIBICLEANSE per Dr Santiago . Wear comfortable, loose fitting clothing.? Children are encouraged to wear pajamas. - Jewelry must be removed prior to entering the operating room.? Rings and piercings that are not removed may be cut off. - The hospital will not accept responsibility for valuables.? - Please leave all valuables, including medications, at home the day of surgery. If you are going home after surgery, a licensed pack train driver must drive you home.? - NO public transportation without another adult if you receive anesthesia. - We recommend that an adult stay with you for 24 hours following discharge. - We also recommend that you do not drive, make important decision, drink alcoholic beverages, or take any drugs that were not prescribed by your health care provider for at least 24 hours after your discharge time. Follow any additional instructions given to you from your surgeon. Telephone instructions given to Patient & daughter and asked if any additional questions and then verbalized understanding. Patient advised to call surgeon office or pre surgery nurse liaison [phone] if any additional questions.
[2024-09-21] VITALS (13 sets, daily range): BP systolic 121–161; BP diastolic 57–77; PULSE 77–95; RESP 12–26; TEMP 36.2–37.2; O2SAT 94–100; BMI 27.3
--- NOTE | ~2024-09-21 | XR_ITS ---
EXAMINATION: XR hip RT min 2V DATE: 09/21/2024 09:57 INDICATION: Total right hip arthroplasty. Postop. TECHNIQUE: 2 views of right hip were obtained. COMPARISON: Right hip radiographs 06/03/2024 FINDINGS: There is a total right hip arthroplasty in near-anatomic alignment. No fracture. There is g as in the soft tissues, consistent with recent surgery. IMPRESSION: 1. Total right hip arthroplasty in near-anatomic alignment. Reviewed, dictated and finalized at location A.
--- OUTSIDE RECORDS SUMMARY | 2024-09-21 00:13 | XMS_ITS | Continuity of Care Document ---
Author Organization [facility] Address [address] [place] [address] Exec utive [facility] [address] [place] [address] Phone Care Team Providers Care Community Liaison Officer Name Role Phone Dewey Emery Unavailable Unavailable Advance Directives Directive Yes / No Effective Date File Name No Information Encounters Encounter Description Practice Location Reason(s) For Visit Diagnoses Date Provider Providers Copied on Encounter [facility], [address] [place] [address] [address], [place], [place], [id number], [place] tel:[phone] [facility] No Information October-0 7-200 3 Doisy Edward. [address] , [address], [place], [address], [place]. tel:[phone] Family History Family Member Type Diagnosis Age At Onset No Information Payers Payer name Insurance type Covered green party ID Authoriza tion(s) BCBS [place] Commercial BL [id number] Social History Type Description Quantity Date Captured [...]
[2024-09-21] MEDS: ACETAMINOPHEN 500 MG TABLET 1000 MG PO (06:36)
[2024-09-21] MEDS: LACTATED RINGERS 1,000 ML 30 ML IV CONT ×3 (06:36→10:17)
--- NOTE | 2024-09-21 07:07 | WPDANESEPPF ---
Anes - Initial Pre Proc Eval Procedure: Operation Date: 09/21/24 07:30 Proposed Procedures p Right Total Hip Arthroplasty - Jacob Santiago MD Date/Time: 09/21/24 07:07 Surgeon: Jacob Santiago MD Pre Op Diagnosis: right hip oa Patient Data Age: 74 Gender: F Height: 1.57 m Weight: 67.6 kg Last Vital Signs Temp 99.0 F 09/01/24 12:11 Pulse 90 09/01/24 12:11 Resp 16 09/01/24 12:11 BP 148/93 H 09/01/24 12:11 Pulse Ox 98 09/01/24 12:11 O2 Del Method Room Air 09/01/24 12:11 Allergies Allergy/AdvReac Type Severity Reaction Status Date / Time No Known Allergies Allergy Verified 09/21/24 06:57 Home Medications ?Medication ?Instructions ?Recorded ?Confirmed ?Type cholecalciferol (vitamin D3) 1,250 50,000 unit PO .three times a week 09/01/19 09/12/24 History mcg (50,000 unit) tablet meloxicam 15 mg tablet See Rx Instructions .Route 08/09/24 09/21/24 Rx .COMPLEX #30 tabs acetaminophen 650 mg 650 mg PO Q8H PRN pain 09/01/24 09/12/24 History tablet,extended release (Arthritis Pain Relief (acetaminophen) ER) celecoxib 200 mg capsule (Celebrex) 200 mg PO BID #60 caps 09/12/24 09/12/24 Rx chlorhexidine gluconate 4 % 1 applic topical DAILY #237 mL 09/14/24 09/21/24 Rx topical liquid (Hibiclens) Laboratory Tests 09/21/24 06:25 Blood Type Pending Antibody Screen Pending Patient hx anesthesia problems: none Family hx anesthesia problems: none Results Review: All pre-operative results and documents have been reviewed as part of the pre-operative evaluation. [facility] Past Medical History Medical History Fatigue Toenail fungus Left breast mass Degenerative joint disease of left hip Degenerative joint disease of right hip Right knee pain Overweight Vitamin D deficiency disease Surgical History Surgical History H/O: hysterectomy Family History Family History Unknown Arthritis Social History Social History Smoking packs per day: 0.5 Smoking cigarettes per day: 10.0 Years smoked: 10 Smoking pack-years: 5.00 Smoking status: Former smoker Smoking end date: 06/29/77 Additional smoking assessment comments: Denies any Alcohol intake: never Substance use: never Substance use type: does not use Current Housing: Decline to Answer Concerned About Future Housing: Decline to Answer Difficulty Paying Gas/Electric Bills: Decline to Answer Difficulty Paying for Meds: Decline to Answer Currently Unemployed: Decline to Answer Education: Decline to Answer Difficulty w/ Childcare or Family Care: Decline to Answer Living arrangements: with family Occupation/Education: retired Spiritual care concerns: No Anes - Eval Final PreProcedure Day of Procedure 09/21/24 07:07 Patient weight: overweight Heart: regular rate and rhythm Lungs: clear to auscultation Airway: Mallampati scale class III Neurological: alert and oriented Last oral intake: >/= 8 hours ASA classification: II Emergent: no Anesthetic plan: proceed Anesthesia type and monitoring: general ETT and standard monitoring Results Review: All pre-operative results and documents have been reviewed as part of the pre-operative evaluation. BMI 27, EKG reviewed. Pt can walk short distances w walker due to severe pain for the last several weeks, no cp or sob. Informed Consent: The patient's anesthetic plan and its attendant risks and benefits were discussed with the patient/family/POA. Questions were solicited and answers provided to the satisfaction of the patient/family/POA.
--- NOTE | 2024-09-21 07:15 | WPDHPUPDATE1 ---
History and Physical Update Update Date/Time: 09/21/24 07:15 History and Physical has been reviewed, including an updated exam of the patient. There are NO changes in the patient's condition. Risks, benefits, and alternatives have been discussed and questions answered. Patient agrees to proceed with procedure.
[2024-09-21] MEDS: TRANEXAMIC ACID 1,000MG/ISO100 1,000 MG/100 ML BAG 200 MG IVPB (07:20)
[2024-09-21] MEDS: ceFAZolin 2 GM/D5W 50 ML 2 GM/50 ML BAG IVPB ×2 (08:46→17:25)
[2024-09-21] MEDS: SODIUM CHLORIDE 0.9% IV 37.7 ML, MORPHINE SULFATE INJ (*CRX) 2 MG, ROPivacaine HCL 1% 2... INFILTRATE (08:47)
[2024-09-21] MEDS: TRANEXAMIC ACID 1,000 MG/10 ML AMPUL 1000 MG IV PUSH (09:01)
--- NOTE | 2024-09-21 09:46 | W.PM.PROC2 ---
Procedure Note - Detailed Date of Procedure 09/21/24 Pre-op Diagnosis right hip oa Post-op Diagnosis Same Procedure Performed R TAMMY Surgeon Jacob Santiago MD Anesthesia General Description of Procedure THE PATIENT WAS TAKEN TO THE OPERATING ROOM IN STABLE CONDITION AND WAS PLACED IN THE LATERAL DECUBITUS AND THE RIGHT LOWER EXTREMITY WAS PREPPED AND DRAPED IN THE STERILE FASHION. INCISION WAS MADE IN THE POSTERIOR LATERAL SIDE OF THE HIP, DOWN TO THE FASCIA LAYER. THE FASCIA WAS INCISED. THE HIP WAS EXPOSED. THE SHORT EXTERNAL ROTATORS WERE EXPOSED. THE SCIATIC NERVE WAS IDENTIFIED. INCISION WAS MADE THROUGH THE SHORT EXTERNAL ROTATORS AND THE CAPSULE OF THE HIP JOINT. THE HIP WAS DISLOCATED. AN OSTEOTOMY WAS MADE TO THE FEMORAL NECK ABOUT 1 CM PROXIMAL TO THE LESSER TROCHANTER. THE ACETABULUM WAS EXPOSED. THERE WAS SEVERE DJD SEEN. BEGINNING WITH A 44 REAMER THE ACETABULUM WAS REAMED TO 49 MM. A 49 MM TRIAL WAS PLACED IN 35 DEG OF ABDUCTION AND ANTEVERSION WAS IN ALIGNMENT WITH THE TRANS ACETABULAR LIGAMENT. THE FIT WAS EXCELLENT. THE TRIAL WAS REMOVED. A 50 MM BIOMET G7 COMPONENT WAS THEN TAPPED IN TO PLACE IN 35 DEG OF ABDUCTION AND ANTEVERSION IN ALIGNMENT WITH THE TRANSVERSE ACETABULAR LIGAMENT. THE FIT WAS EXCELLENT. 2 SCREWS WERE PLACED WITH GOOD BITES. THE ACETABULAR LINER WAS PLACED AND CHECKED FOR STABILITY. NEXT THE FEMUR WAS PREPARED WITH INITIAL CANAL FINDER THEN SEQUENTIAL BROACHING WITH A TAPERLOC HIP SYSTEM, UNTIL AN 8 BROACH FIT WELL IN 15 OF ANTEVERSION. A +3 STANDARD OFFSET NECK WITH 36 MM HEAD TRIAL WAS PLACED. THE SHUCK TEST WAS EXCELLENT AND THE STABILITY IN FLEXION AND ROTATION WAS EXCELLENT. LEG LENGTHS WERE GROSSLY EQUAL. TRIALS WERE REMOVED. A BIOMET TAPERLOC 8 STEM WAS PLACED WITH A STANDARD OFFSET NECK. THE FIT WAS EXCELLENT IN 15 DEG OF ANTEVERSION. A +3 CERAMIC 36 MM FEMORAL HEAD WAS PLACED. THE HIP WAS TRIALED AND THE STABILITY WAS EXCELLENT WERE THE LEG LENGTHS AND THE SHUCK TEST. THE WOUND WAS IRRIGATED WITH STERILE BETADINE AND WATER FOR 3 MIN. THEN WASHED AGAIN. THE SCIATIC NERVE WAS IDENTIFIED AGAIN. THE CAPSULE AND THE EXTERNAL ROTATORS WERE APPROXIMATED WITH NUMBER 1 VICRYL. THE FASCIA WITH No 2 QUIL AND THE SUB CUTANEOUS LAYER WITH 2-0 ABSORBABLE SUTURE AND A RUNNING 3-0 SUBCUTICULAR STITCH FOR THE SKIN. DERMABOND WAS PLACED AND STERILE DRESSING WAS APPLIED. PATIENT WAS PLACED BACK ON TO THE SUPINE POSITION AND WAS EXTUBATED Estimated Blood Loss -150.0 Complications No immediate complications Condition Stable Disposition PACU
[2024-09-21] MEDS: fentaNYL CITRATE INJ (*CRX) 100 MCG/2 ML VIAL 25 MCG IV PUSH ×4 (09:54→10:39)
--- NOTE | 2024-09-21 11:29 | ADMGEN ---
This patient, Rachael Segovia, was admitted to 3 [facility] Surg Room 325-02. Patient/family oriented to hospital policies and general routines including ID bracelet, bed and alarms, visiting hours, pain management, procedures, bathroom and other care routines, personal items, smoking policy, room service/diet, and visiting hours. Information on how to activate the Rapid Response Team has been discussed. Patient/Family are encouraged to report perceived risks to care and to ask questions if they do not understand what they are told or what they should do.
[2024-09-21] MEDS: ACETAMINOPHEN 500 MG TABLET PO (17:24)
[2024-09-21] MEDS: ASPIRIN 81 MG ENTERIC TABLET PO (21:27)
[2024-09-21] MEDS: FAMOTIDINE 20 MG TABLET PO (21:27)
[2024-09-21] MEDS: oxyCODONE/ACETAMINOPHEN (*CRX) 5-325 MG TABLET 1 TABLET PO (22:42)
[2024-09-21] MEDS: IBUPROFEN IV 800 MG/200 ML 800 MG/200 ML BAG 200 MG IVPB (23:30)
[2024-09-22 00:24] VITALS: BP 108/63; PULSE 97; RESP 18; TEMP 36.9; O2SAT 98
[2024-09-22] MEDS: ceFAZolin 2 GM/D5W 50 ML 2 GM/50 ML BAG IVPB ×2 (01:00→10:15)
[2024-09-22] MEDS: ACETAMINOPHEN 500 MG TABLET PO (01:57)
[2024-09-22 04:20] VITALS: BP 129/60; PULSE 98; RESP 18; TEMP 36.9; O2SAT 100
[2024-09-22] MEDS: diazePAM (*CRX) 5 MG TABLET PO (06:11)
[2024-09-22 06:16] LABS: Basophils Percent Auto 0.1 % (0.2-1.2); Eosinophils Percent Auto 0.1 % (0-4.4); Hematocrit 28.4 % (37.0-47.0); Hemoglobin 9.2 g/dL (12.0-15.0); Immature Granulocyte Absolute 0.02 K/mm3 (0.00-0.031); Immature Granulocyte Percent A 0.3 % (0-0.5); Lymphocytes Absolute Auto 1.83 K/mm3 (0.9-3.2); Lymphocytes Percent Auto 26.3 % (18.3-44.2); Mean Corpuscular HGB Conc 32.4 g/dl (32-36); Mean Corpuscular Hemoglobin 28.2 pg (26-34); Mean Corpuscular Volume 87.1 fl (80-100); Mean Platelet Volume 9.4 fl (7.4-10.4); Monocytes Absolute Auto 0.6 K/mm3 (0.1-0.6); Neutrophils Absolute Auto 4.5 K/mm3 (1.3-6.7); Neutrophils Percent Auto 65.2 % (45.5-73.1); Platelet Count Result 177 k/mm3 (150-375); Red Blood Count 3.26 M/mm3 (4.2-5.4); Red Cell Distribution Width 12.8 % (11.5-14.5)
[2024-09-22 06:30] LABS: Anion Gap 6 mmol/L (4-12); Blood Urea Nitrogen 18 mg/dL (7-17); Calcium 8.9 mg/dL (8.4-10.2); Carbon Dioxide 28 mmol/L (22-30); Chloride 105 mmol/L (98-107); Estimated CRCL calculation 39 ml/min; Estimated Glomerular Filt Rate 55; Glucose 93 mg/dL (65-110); Potassium 3.5 mmol/L (3.4-5.0); Sodium 139 mmol/L (137-145)
[2024-09-22 08:00] VITALS: PULSE 96; RESP 20; O2SAT 100
--- NOTE | 2024-09-22 08:09 | PCOTNOTE ---
The patient treatment was not able to be completed. Patient complains of 7/10 pain and nausea. Will plan to continue treatment per plan of care.
[2024-09-22] MEDS: IBUPROFEN IV 800 MG/200 ML 800 MG/200 ML BAG 400 MG IVPB (08:25)
[2024-09-22] MEDS: oxyCODONE/ACETAMINOPHEN (*CRX) 5-325 MG TABLET 1 TABLET PO ×3 (08:26→16:12)
[2024-09-22] MEDS: ONDANSETRON INJ 4 MG/2 ML VIAL IV PUSH (08:26)
[2024-09-22] MEDS: FAMOTIDINE 20 MG TABLET PO (08:26)
[2024-09-22] MEDS: CELECOXIB 200 MG CAPSULE PO (08:29)
[2024-09-22] MEDS: ASPIRIN 81 MG ENTERIC TABLET PO (08:29)
[2024-09-22 08:46] VITALS: BP 130/70; PULSE 96; RESP 20; TEMP 36.9; O2SAT 100
--- NOTE | 2024-09-22 09:04 | PCPTNOTE ---
Attempted to see patient for PT, however patient was working with OT.
--- NOTE | 2024-09-22 09:06 | WPDANESPN ---
Anes - Prog Note Post-Op Date/Time: 09/22/24 09:06 Cardiovascular status: normal Respiratory status: normal Airway patency: baseline Mental status: baseline Post-Op hydration status: normal Vital Signs: Last Vital Signs Temp 36.9 C 09/22/24 04:20 Pulse 98 09/22/24 04:20 Resp 18 09/22/24 04:20 BP 129/60 09/22/24 04:20 Pulse Ox 100 09/22/24 04:20 O2 Del Method Room Air 09/21/24 23:00 O2 Flow Rate 8 09/21/24 10:10 Pain Score (VAS): 2 I/O: Intake & Output 09/21/24 09/22/24 09/22/24 23:59 07:59 15:59 Intake Total 300 550 Balance 300 550 Laboratory Tests 09/22/24 05:45 09/22/24 05:45 09/22/24 05:45 WBC 7.0 RBC 3.26 L Hgb 9.2 L D Hct 28.4 L MCV 87.1 MCH 28.2 MCHC 32.4 RDW 12.8 Plt Count 177 MPV 9.4 Immature Gran % (Auto) 0.3 Neut % (Auto) 65.2 Lymph % (Auto) 26.3 [place] % (Auto) 8.0 Eos % (Auto) 0.1 Baso % (Auto) 0.1 L Lymph # (Auto) 1.83 [place] # (Auto) 0.6 Eos # (Auto) 0.0 Baso # (Auto) 0.0 Abs Immat Gran (auto) 0.02 Absolute Neuts (auto) 4.5 Absolute Nucleated RBC 0.000 Nucleated RBC % 0.0 Sodium 139 Potassium 3.5 Chloride 105 Carbon Dioxide 28 Anion Gap 6 BUN 18 H Creatinine 0.98 Estim Creat Clear Calc 39 Estimated GFR 55 L Glucose 93 Calcium 8.9 Post-procedural complaints: none Patient Feedback: Patient satisfied with anesthetic care.
--- NOTE | 2024-09-22 09:20 | PM.PNORT ---
Progress Note: A&P Assessment and Plan (1) S/P total hip arthroplasty: Qualifiers: Laterality: right Qualified Code(s): Z96.641 - Presence of right artificial hip joint <JEFF Bosch - Last Filed: 09/22/24 09:27> Code(s): Z96.649 - Presence of unspecified artificial hip joint <JEFF Bosch - Last Filed: 09/22/24 09:27> Status: Acute <JEFF Bosch - Last Filed: 09/22/24 09:27> Assessment and Plan: POD #1 : Right TAMMY Continue PT/OT. WBAT. Walker. HIGH FALL RISK. Continue pain control. Ice Hip. Protect skin. DVT prophylaxis with Aspirin. SCDs. Incentive Spirometry Use reviewed. Monitor Dressing. Change prior to discharge. Bowel Regimen. Dispo: Home with Home Health pending progress with PT/OT <JEFF Bosch - Last Filed: 09/22/24 09:27> Assessment and Plan: Reviewed history, exam, radiographs and current labs with attending MD and covering surgeon, Dr. Santiago, who agrees with current plan as indicated above. No further recommendations from Dr. Santiago at this time. <JEFF Bosch - Last Filed: 09/22/24 09:27> Reviewed history, exam, radiographs and current labs with attending MD and covering surgeon, Dr. Santiago, who agrees with current plan as indicated above. No further recommendations from Dr. Santiago at this time. Plan for dc home today. i have evaluated the patient and agree with plan. jacob santiago <Jacob Santiago MD - Last Filed: 09/22/24 17:46> Subjective Subjective Date/Time Seen: 09/22/24 09:20 <JEFF Bosch - Last Filed: 09/22/24 09:27> Post Op day: 1 <JEFF Bosch - Last Filed: 09/22/24 09:27> Interval history: POD #1: Right TAMMY Patient having pain right hip/groin today. Also with c/o muscle spasms in the right thigh. Otherwise, doing well. Hopeful for d/c home today. <JEFF Bosch - Last Filed: 09/22/24 09:27> Review of Systems Review of Systems: All systems reviewed & are unremarkable except as noted in HPI and below <JEFF Bosch - Last Filed: 09/22/24 09:27> Constitutional: Constitutional: Denies chills, Denies fever(s), Denies headache(s) and Denies lethargy <JEFF Bosch - Last Filed: 09/22/24 09:27> ENT: Denies headache(s) <JEFF Bosch - Last Filed: 09/22/24 09:27> Cardiovascular: Cardiovascular: Denies chest pain, Denies diaphoresis, Denies lightheadedness, Denies palpitations, Denies dyspnea and Denies dyspnea on exertion <JEFF Bosch - Last Filed: 09/22/24 09:27> Respiratory: Respiratory: Denies cough, Denies dyspnea and Denies dyspnea on exertion <JEFF Bosch - Last Filed: 09/22/24 09:27> Gastrointestinal: Gastrointestinal: Denies constipation, Denies diarrhea, Denies nausea and Denies vomiting <JEFF Bosch - Last Filed: 09/22/24 09:27> Genitourinary: Genitourinary: Reports urinary frequency, Denies dysuria and Denies urinary hesitancy <JEFF Bosch - Last Filed: 09/22/24 09:27> Musculoskeletal: Musculoskeletal: Reports joint swelling (Right Hip ) and Reports limited range of motion (Right Hip due to recent surgery ) <JEFF Bosch - Last Filed: 09/22/24 09:27> Neurologic: Denies headache(s) and Reports weakness <JEFF Bosch - Last Filed: 09/22/24 09:27> Endocrine: Endocrine: Denies palpitations <JEFF Bosch - Last Filed: 09/22/24 09:27> Exam Const: General: comfortable and no acute distress <JEFF Bosch - Last Filed: 09/22/24 09:27> Resp: Effort & Inspection: normal respiratory effort <Zainab Morelia Springer ARCHITECTURAL DRAFTER - Last Filed: 09/22/24 09:27> Cardio: Rate: regular rate <Zainabsa Morelia Springer ARCHITECTURAL DRAFTER - Last Filed: 09/22/24 09:27> Rhythm: regular rhythm <Zainabsa Morelia Springer ARCHITECTURAL DRAFTER - Last Filed: 09/22/24 09:27> GI: Inspection: non-distended <Zainabsa Morelia Springer ARCHITECTURAL DRAFTER - Last Filed: 09/22/24 09:27> Skin: General skin exam: normal color <Zainab Springer ARCHITECTURAL DRAFTER - Last Filed: 09/22/24 09:27> Other: Incision right hip c/d/i. Surrounding tissue without redness/warmth. Mild swelling consistent with recent surgery. No drainage. <Zainabmaycol Springer ARCHITECTURAL DRAFTER - Last Filed: 09/22/24 09:27> Neuro: Cognition (Neuro): normal cognition <Zainab Morelia Springer ARCHITECTURAL DRAFTER - Last Filed: 09/22/24 09:27> Speech: normal speech <Zainabsa Morelia Springer ARCHITECTURAL DRAFTER - Last Filed: 09/22/24 09:27> Extrem: Right lower extremity: normal to inspection, normal capillary refill, hip/thigh Details: tenderness Location: of the hip (Thigh soft ) Location: laterally and anteriorly, swelling Location: at the hip, abnormal ROM (limited consistent with recent surgery ) Details: pain with active ROM during and pain with passive ROM during and other (Incision c/d/i. ); no deformity and no unusual warmth, knee Details: normal to inspection; no tenderness and no swelling, lower leg (Negative German's Sign ) Details: normal to inspection and no edema; no tenderness, ankle (+ankle dorsiflexion/plantarflexion) Details: normal to inspection and no edema; no tenderness, no swelling and no ecchymosis and foot Details: normal capillary refill, toes with normal ROM, vascular exam Details: dorsalis pedis pulse present and motor-sensory exam Details: light-touch normal; no tenderness <ROSALIE BoschP - Last Filed: 09/22/24 09:27> Objective Data Vital Signs Vital Signs: Vital Signs - 24 hr 09/21/24 09:40 09/21/24 09:55 09/21/24 10:10 Temperature 36.2 C L Pulse Rate 77 77 78 Respiratory Rate 18 26 H 12 Blood Pressure 152/61 H 161/77 H 147/65 H Pulse Oximetry 100 100 100 Oxygen Delivery Simple Face Mask Simple Face Mask Simple Face Mask Oxygen Flow Rate 8 8 8 09/21/24 10:25 09/21/24 10:40 09/21/24 10:55 Temperature Pulse Rate 81 81 77 Respiratory Rate 16 12 12 Blood Pressure 132/68 121/57 L 130/64 Pulse Oximetry 96 97 94 Oxygen Delivery Room Air Room Air Room Air Oxygen Flow Rate 09/21/24 11:01 09/21/24 11:16 09/21/24 11:46 Temperature 36.4 C L 36.4 C L 36.9 C Pulse Rate 91 89 95 Respiratory Rate 18 20 18 Blood Pressure 154/67 H 150/70 H 150/70 H Pulse Oximetry 100 100 100 Oxygen Delivery Oxygen Flow Rate 09/21/24 11:55 09/21/24 12:46 09/21/24 13:01 Temperature 36.9 C Pulse Rate 95 Respiratory Rate 20 Blood Pressure 144/69 H Pulse Oximetry 100 Oxygen Delivery Room Air Room Air Oxygen Flow Rate 09/21/24 16:46 09/21/24 20:46 09/21/24 23:00 Temperature 36.7 C 37.2 C Pulse Rate 84 94 Respiratory Rate 20 18 Blood Pressure 130/60 124/66 Pulse Oximetry 96 98 Oxygen Delivery Room Air Oxygen Flow Rate 09/22/24 00:24 09/22/24 04:20 Temperature 36.9 C 36.9 C Pulse Rate 97 98 Respiratory Rate 18 18 Blood Pressure 108/63 129/60 Pulse Oximetry 98 100 Oxygen Delivery Oxygen Flow Rate <JEFF Bosch - Last Filed: 09/22/24 09:27> Intake/Output Intake/Output: Intake & Output 09/19/24 09/20/24 09/21/24 09/22/24 23:59 23:59 23:59 23:59 Intake Total 1610 550 Balance 1610 550 <JEFF Bosch - Last Filed: 09/22/24 09:27> Meds/Results Medications: Active Medications Generic Name Dose Route Start Last Admin Trade Name Freq PRN Reason Stop Dose Admin Acetaminophen 500 mg 09/21/24 11:01 09/22/24 01:57 Acetaminophen 500 Mg Tablet PO 500 mg Q6H PRN Administration Pain Rated 1-3 Aspirin 81 mg 09/21/24 21:00 09/22/24 08:29 Aspirin 81 Mg Enteric Tablet PO 81 mg Q12HR JANEEN Administration Celecoxib 200 mg 09/22/24 09:00 09/22/24 08:29 Celecoxib 200 Mg Capsule PO 200 mg DAILY JANEEN Administration Diazepam 5 mg 09/21/24 11:01 09/22/24 06:11 Diazepam (*Crx) 5 Mg Tablet PO 5 mg Q6H PRN Administration Anxiety/Muscle Spasm Diphenhydramine HCl 25 mg 09/21/24 11:01 Diphenhydramine Hcl Inj 50 Mg/Ml Vial IV PUSH Q6H PRN Itching Ergocalciferol 50,000 units 09/23/24 09:00 Ergocalciferol 50,000 Units Capsule PO [id number] JANEEN Famotidine 20 mg 09/21/24 21:00 09/22/24 08:26 Famotidine 20 Mg Tablet PO 20 mg Q12HR JANEEN Administration Hydromorphone HCl 1 mg 09/21/24 11:01 Hydromorphone Hcl Inj (*Crx) 1 Mg/Ml Syr IV PUSH Q2H PRN Breakthrough Pain Rated 7-10 or NPO Hydromorphone HCl 0.5 mg 09/21/24 11:01 Hydromorphone Hcl Inj (*Crx) 1 Mg/Ml Syr IV PUSH Q2H PRN Breakthrough Pain Rated 4-6 or NPO Cefazolin Sodium 2 gm in 50 mls @ 100 mls/hr 09/21/24 17:00 09/22/24 01:30 Ancef 2 Gm/D5w 50 Ml IVPB 09/22/24 09:29 Infused Q8H [facility] Infusion Ibuprofen 800 mg in 200 mls @ 400 mls/hr 09/21/24 11:01 09/22/24 08:25 Caldolor 800 Mg/200 Ml IVPB 400 mls/hr Q6H PRN Administration Breakthrough Pain Rated 1-3 or NPO Naloxone HCl 0.1 mg 09/21/24 11:01 Naloxone Hcl 0.4 Mg/Ml Vial IV PUSH Q2M PRN Opiate Reversal Ondansetron HCl 4 mg 09/21/24 11:01 09/22/24 08:26 Ondansetron Inj 4 Mg/2 Ml Vial IV PUSH 4 mg Q4H PRN Administration Nausea And Vomiting Oxycodone/Acetaminophen 1 tablet 09/21/24 11:01 09/22/24 08:26 Oxycodone/Acetaminophen (*Crx) 5-325 Mg Tablet PO 1 tablet Q4H PRN Administration Pain Rated 4-6 Oxycodone/Acetaminophen 1 tab 09/21/24 11:01 Oxycodone/Acetaminophen (*Crx) 10-325 Mg Tablet PO Q6H PRN Pain Rated 7-10 Polyethylene Glycol 17 gm 09/22/24 09:00 09/22/24 08:35 Polyethylene Glycol 3350 17 Gm Powd.Pack PO Not Given QAM JANEEN Senna/Docusate Sodium 2 tab 09/21/24 17:00 09/22/24 08:35 Senna/Docusate Sodium Tablet PO Not Given BID JANEEN <JEFF Bosch - Last Filed: 09/22/24 09:27> Radiology Results: ITS Impressions Hip X-Ray 09/21/24 10:00 IMPRESSION: 1. Total right hip arthroplasty in near-anatomic alignment. <JEFF Bosch - Last Filed: 09/22/24 09:27> Labs Labs: Laboratory Results - last 24 hr 09/22/24 05:45 WBC 7.0 RBC 3.26 L Hgb 9.2 L D Hct 28.4 L MCV 87.1 MCH 28.2 MCHC 32.4 RDW 12.8 Plt Count 177 MPV 9.4 Immature Gran % (Auto) 0.3 Neut % (Auto) 65.2 Lymph % (Auto) 26.3 [place] % (Auto) 8.0 Eos % (Auto) 0.1 Baso % (Auto) 0.1 L Lymph # (Auto) 1.83 [place] # (Auto) 0.6 Eos # (Auto) 0.0 Baso # (Auto) 0.0 Abs Immat Gran (auto) 0.02 Absolute Neuts (auto) 4.5 Absolute Nucleated RBC 0.000 Nucleated RBC % 0.0 Sodium 139 Potassium 3.5 Chloride 105 Carbon Dioxide 28 Anion Gap 6 BUN 18 H Creatinine 0.98 Estim Creat Clear Calc 39 Estimated GFR 55 L Glucose 93 Calcium 8.9 <JEFF Bosch - Last Filed: 09/22/24 09:27> Quality VTE Prophylaxis VTE prophylaxis: mechanical ordered <JEFF Bosch - Last Filed: 09/22/24 09:27>
--- NOTE | 2024-09-22 09:40 | PCPTNOTE ---
Attempted to see patient for PT, however per RN asked to wait on PT due to patient's pain and RN getting patient pain medication.
[2024-09-22] MEDS: SENNA/DOCUSATE SODIUM TABLET 2 TAB PO ×2 (12:29→16:11)
[2024-09-22 12:46] VITALS: BP 120/60; PULSE 100; RESP 18; TEMP 36.6; O2SAT 100
[2024-09-22 17:07] LABS: Hemoglobin 9.7 g/dL (12.0-15.0); Mean Corpuscular HGB Conc 32.3 g/dl (32-36); Mean Corpuscular Volume 86.7 fl (80-100); Mean Platelet Volume 9.3 fl (7.4-10.4); Platelet Count Result 172 k/mm3 (150-375); Red Blood Count 3.46 M/mm3 (4.2-5.4); White Blood Count 7.9 K/mm3 (4.5-10.0)
[2024-09-22 17:18] LABS: Alanine Aminotransferase 16 U/L (6-35); Albumin Level 3.8 g/dL (3.5-5.1); Alkaline Phosphatase 58 U/L (38-126); Anion Gap 8 mmol/L (4-12); Aspartate Amino Transferase 34 U/L (14-36); Bilirubin,Total 0.4 mg/dL (0.2-1.3); Blood Urea Nitrogen 22 mg/dL (7-17); Calcium 9.1 mg/dL (8.4-10.2); Carbon Dioxide 27 mmol/L (22-30); Chloride 105 mmol/L (98-107); Estimated CRCL calculation 35 ml/min; Estimated Glomerular Filt Rate 49; Glucose 109 mg/dL (65-110); Potassium 3.5 mmol/L (3.4-5.0); Sodium 140 mmol/L (137-145)
== END 2024-09-22 20:15 | disposition home or self-care (01) ==
LOC: ANHSURGERY 05:57 → ANH3MEDSUR 09-22 08:24 → ANHSURGERY 09-26 10:33
PROVIDERS: Nurse Practitioner Family; PCP Emergency Medicine; Visit Provider Orthopaedic Surgery
PROC: (CPT 27130; principal; 2024-09-21 07:30)
DX: M16.11 Unilateral primary osteoarthritis, right hip (principal); E55.9 Vitamin D deficiency, unspecified; Z98.890 Other specified postprocedural states; Z87.891 Personal history of nicotine dependence
CPT/HCPCS: 27130; 36415; 73502; 80048; 80053; 80307; 81003; 82040; 83036; 85025; 85027; 85610; 85730; 86850; 86900; 86901; 87641; 97110; 97116; 97161; 97165; 97530; 97535; A9270; C1713; C1776; J0171; J0690; J1100; J1741; J1885; J2270; J2405; J2704; J2795; J3010; J7120

== ENCOUNTER 2024-10-26 13:30 | Outpatient (CLI) | payer MEDICARE, SELFPAY ==
--- NOTE | 2024-10-26 13:48 | ECG_ITS ---
Test Date: 2024-10-26 13:56:01 Measurements Intervals [place] Rate: 74 P: 61 LA: 167 QRS: 14 QRSD: 78 T: 33 QT: 369 QTc: 411 Interpretive Statements SINUS RHYTHM POSSIBLE RIGHT VENTRICULAR CONDUCTION DELAY LOW QRS VOLTAGE IN PRECORDIAL LEADS BASELINE ARTIFACT- I, II, III, AVR, AVL, AVF, V3-V6 BORDERLINE ECG Compared to ECG 06/03/2024 12:06:36 NO SIGNIFICANT CHANGE Electronically Signed On 10-26-2024 14:00:59 CDT by Sylvester Whittington D.O.
--- OUTSIDE RECORDS SUMMARY | 2024-10-26 14:23 | XMS_ITS | Continuity of Care Document ---
Author Organization [facility] Address [address] [place] [address] [address] [place] [address] Phone Care Team Providers Care Wood Machine Carver Name Role Phone Dewey Emery Unavailable Unavailable Advance Directives Directive Yes / No Effective Date File Name No Information Encounters Encounter Description Practice Location Reason(s) For Visit Diagnoses Date Provider Providers Copied on Encounter [facility], [address] [place] [address] [address], [place], [place], [id number], [place] tel:[phone] [facility] No Information October-0 7-200 3 Doisy Edward. [address] , [address], [place], [address], [place]. tel:[phone] Family History Family Member Type Diagnosis Age At Onset No Information Payers Payer name Insurance type Covered alliance party ID Authoriza tion(s) BCBS [place] Commercial BL [id number] Social History Type Description Quantity Date Captured [...]
== END 2024-10-26 13:31 | disposition home or self-care (01) ==
PROVIDERS: PCP Emergency Medicine; Visit Provider Emergency Medicine
DX: Z01.818 Encounter for other preprocedural examination (principal); R94.31 Abnormal electrocardiogram [ECG] [EKG]
CPT/HCPCS: 93005

== ENCOUNTER 2024-10-31 12:11 | Outpatient (CLI) | payer MEDICARE, SELFPAY ==
--- OUTSIDE RECORDS SUMMARY | 2024-10-31 12:39 | XMS_ITS | Continuity of Care Document ---
Author Organization [facility] Address [address] [place] [address] [address] [facility] [address] [place] [address] Phone Care Team Providers Care Accounts Receivable Supervisor Name Role Phone Dewey Emery Unavailable Unavailable Advance Directives Directive Yes / No Effective Date File Name No Information Encounters Encounter Description Practice Location Reason(s) For Visit Diagnoses Date Provider Providers Copied on Encounter [facility], [address] [place] [address] [address], [place], [place], [id number], [place] tel:[phone] [facility] No Information 0 7-200 3 Doisy Edward. [address] , [address], [place], [address], [place]. tel:[phone] Family History Family Member Type Diagnosis Age At Onset No Information Payers Payer name Insurance type Covered constitution party ID Authoriza tion(s) BCBS [place] Commercial BL [id number] Social History Type Description Quantity Date Captured [...]
[2024-10-31 12:47] LABS: Basophils Percent Auto 0.4 % (0.2-1.2); Eosinophils Absolute Auto 0.1 K/mm3 (0-0.3); Eosinophils Percent Auto 0.5 % (0-4.4); Hemoglobin 11.9 g/dL (12.0-15.0); Immature Granulocyte Absolute 0.05 K/mm3 (0.00-0.031); Immature Granulocyte Percent A 0.5 % (0-0.5); Lymphocytes Absolute Auto 1.26 K/mm3 (0.9-3.2); Lymphocytes Percent Auto 11.9 % (18.3-44.2); Mean Corpuscular HGB Conc 30.5 g/dl (32-36); Mean Corpuscular Hemoglobin 26.6 pg (26-34); Mean Corpuscular Volume 87.1 fl (80-100); Mean Platelet Volume 9.7 fl (7.4-10.4); Monocytes Absolute Auto 0.7 K/mm3 (0.1-0.6); Monocytes Percent Auto 6.3 % (2.6-8.5); Neutrophils Absolute Auto 8.5 K/mm3 (1.3-6.7); Neutrophils Percent Auto 80.4 % (45.5-73.1); Platelet Count Result 253 k/mm3 (150-375); Red Blood Count 4.48 M/mm3 (4.2-5.4); White Blood Count 10.6 K/mm3 (4.5-10.0)
[2024-10-31 12:51] LABS: Add Urine Microscopic? YES; Appearance Urine Clear (Clear); Bacteria Urine None Seen /hpf; Bilirubin Urine Negative (Negative); Blood Urine Negative (Negative); Color Urine Yellow (Yellow); Glucose Urine UA Negative (Negative); Ketones Urine Trace mg/dL (Negative); Leukocyte Esterase Ur Trace LEU/UL (Negative); Nitrate Urine Negative (Negative); Non Pathogenic Casts 0-2; Protein Urine Trace mg/dL (Negative); RBC Urine 0-2 /hpf (0-2); Specific Grav Ur 1.021 (1.001-1.035); Squamous Epithelial Cell Urine Few /hpf (Few); WBC Urine 0-5 /hpf (0-3)
[2024-10-31 13:02] LABS: Prothrombin Time 13.2 Seconds (11.1-14.7)
[2024-10-31 13:03] LABS: Partial Thromboplastin Time 27.4 Seconds (22.3-36.8)
[2024-10-31 13:05] LABS: Anion Gap 10 mmol/L (4-12); Blood Urea Nitrogen 13 mg/dL (7-17); Calcium 9.6 mg/dL (8.4-10.2); Carbon Dioxide 29 mmol/L (22-30); Chloride 102 mmol/L (98-107); Estimated Glomerular Filt Rate 60; Glucose 99 mg/dL (65-110); Potassium 4.3 mmol/L (3.4-5.0); Sodium 141 mmol/L (137-145)
[2024-10-31 13:53] LABS: Urine Cotinine NEGATIVE
[2024-10-31 13:59] LABS: MRSA (PCR) NOT DETECTED (NOT DETECTE)
== END 2024-10-31 12:12 | disposition home or self-care (01) ==
PROVIDERS: PCP Emergency Medicine; Visit Provider Orthopaedic Surgery
DX: M16.12 Unilateral primary osteoarthritis, left hip (principal); Z01.818 Encounter for other preprocedural examination
CPT/HCPCS: 80048; 80307; 81001; 85025; 85610; 85730; 86850; 86900; 86901; 87641

== ENCOUNTER 2024-11-08 00:48 | Day surgery (SDC) | payer MEDICARE, SELFPAY ==
[2024-10-27 15:11] VITALS: BMI 25.4
--- NOTE | 2024-10-27 15:21 | PC.NURSE ---
Addendum entered by Nadiya Butler RN 10/27/24 15:28: Called TAYE daughter back, My error, NO celebrex on am of surgery, but pt is able to take up till day before, TJ brownlee Taye, and this note revised to give to pt on date of PAT testing. NO CELEBREX AM of procedure, VEL Original Note: Report to the Outpatient Waiting Room, entrance under the green pavilion located off [address] [facility], at time __0630am on date _11/08/24 . Planned Procedure Time: 0830am . Time changes happen often and if your time is changed the preop area will call you the afternoon before. - You and your visitor will be asked to self-screen and do not enter if you have any COVID symptoms. Please call surgeon if you need to reschedule. - A mask is optional within the hospital at this time. Patients may have clear liquids (water, carbonated beverages, clear teas, apple juice) until 3 hours prior to surgery with a maximum of 20 ounces. - No food from midnight until time of surgery and no smoking, or chewing tobacco (or any form of nicotine). No chewing gum, candy or mints. (0530am) - Take only the following medications with a SIP of water on the morning of surgery: Celebrex ok DO NOT STOP ANY OF YOUR OTHER PRESCRIPTION MEDICATIONS PRIOR TO SURGERY EXCEPT THE FOLLOWING Hold all vitamins and supplements for 3 days per anesthesiologist. Date of last dose is 11/04/24 Medications to discontinue per physician None Date to take last dose___None Please no make-up, nail malay, hairspray, perfume, deodorant, or body powder the day of surgery. No jewelry (including any body piercings) or valuables the day of surgery, leave them at home. Please take a shower or bath the night before, or the morning of, surgery with an antibacterial soap. Wear comfortable, loose fitting clothing. HIBICLEANSE per Dr Santiago - Jewelry must be removed prior to entering the operating room. Rings and piercings that are not removed may be cut off. - The hospital will not accept responsibility for valuables. - Please leave all valuables, including medications, at home the day of surgery. If you are going home after surgery, a licensed speedboat driver must drive you home. - NO public transportation without another adult if you receive anesthesia. - We recommend that an adult stay with you for 24 hours following discharge. - We also recommend that you do not drive, make important decision, drink alcoholic beverages, or take any drugs that were not prescribed by your health care provider for at least 24 hours after your discharge time. Follow any additional instructions given to you from your surgeon. Telephone instructions given to _Daughter Taye Masters and asked if any additional questions and then verbalized understanding. Patient advised to call surgeon office or pre surgery nurse liaison [phone] if any additional questions.
[2024-11-08] VITALS (11 sets, daily range): BP systolic 97–148; BP diastolic 52–74; PULSE 68–91; RESP 12–20; TEMP 36.1–36.8; O2SAT 95–100
--- NOTE | ~2024-11-08 | XR_ITS ---
XR hip LT min 2V Ordering provider: Jacob Santiago MD History: . POST OP LEFT TAMMY . Comparison: None. FINDINGS: BONES: No acute fracture or dislocation. HIP JOINT SPACES: Left total hip arthroplasty. PUBIC SYMPHYSIS: Normal. SOFT TISSUES: Normal. IMPRESSION: No acute osseous abnormality pelvis and left hip. Left total hip arthroplasty. Reviewed, dictated and finalized at location A.
--- OUTSIDE RECORDS SUMMARY | 2024-11-08 00:50 | XMS_ITS | Continuity of Care Document ---
Author Organization [facility] Address [address] [place] [address] [address] [facility] [address] [place] [address] Phone Care Team Providers Care Fill Technician Name Role Phone Dewey Emery Unavailable Unavailable Advance Directives Directive Yes / No Effective Date File Name No Information Encounters Encounter Description Practice Location Reason(s) For Visit Diagnoses Date Provider Providers Copied on Encounter [facility], [address] [place] [address] [address], [place], [place], [id number], [place] tel:[phone] [facility] No Information 0 7-200 3 Doisy Edward. [address] , [address], [place], [address], [place]. tel:[phone] Family History Family Member Type Diagnosis Age At Onset No Information Payers Payer name Insurance type Covered libertarian ID Authoriza tion(s) BC[place] Commercial BL [id number] Social History Type Description Quantity Date Captured [...]
[2024-11-08] MEDS: LACTATED RINGERS 1,000 ML 30 ML IV CONT ×2 (07:30→11:20)
--- NOTE | 2024-11-08 07:30 | WPDHPUPDATE1 ---
History and Physical Update Update Date/Time: 11/08/24 07:30 History and Physical has been reviewed, including an updated exam of the patient. There are NO changes in the patient's condition. Risks, benefits, and alternatives have been discussed and questions answered. Patient agrees to proceed with procedure.
[2024-11-08] MEDS: ACETAMINOPHEN 500 MG TABLET 1000 MG PO (08:06)
[2024-11-08] MEDS: TRANEXAMIC ACID 1,000MG/ISO100 1,000 MG/100 ML BAG 200 MG IVPB (08:06)
--- NOTE | 2024-11-08 08:24 | P.PNAN_ITS ---
Anes - Initial Pre Proc Eval Procedure: Operation Date: 11/08/24 08:30 Proposed Procedures p Left Total Hip Arthroplasty - Jacob Santiago MD Date/Time: 11/08/24 08:24 Surgeon: Jacob Santiago MD Pre Op Diagnosis: left hip DJD Patient Data Age: 74 Gender: F Height: 1.57 m Weight: 65 kg Last Vital Signs Temp 98.3 F 11/08/24 08:07 Pulse 75 11/08/24 08:07 Resp 16 11/08/24 08:07 BP 148/72 H 11/08/24 08:07 Pulse Ox 100 11/08/24 08:07 O2 Del Method Room Air 11/08/24 08:07 Allergies Allergy/AdvReac Type Severity Reaction Status Date / Time No Known Allergies Allergy Verified 11/08/24 08:05 Home Medications Medication Instructions Recorded Confirmed Type cholecalciferol (vitamin D3) 1,250 50,000 unit PO .three times a week 09/01/19 10/31/24 History mcg (50,000 unit) tablet celecoxib 200 mg capsule (Celebrex) 200 mg PO BID #60 caps 10/13/24 10/31/24 Rx oxycodone-acetaminophen 5 mg-325 1 tablet PO Q8H PRN pain #30 tabs 10/13/24 10/31/24 Rx mg tablet chlorhexidine gluconate 4 % 1 applic topical ONCE #237 mL 11/01/24 Rx topical liquid (Hibiclens) Patient hx anesthesia problems: none Family hx anesthesia problems: none Results Review: All pre-operative results and documents have been reviewed as part of the pre- operative evaluation. [facility] Past Medical History Medical History Fatigue Toenail fungus Left breast mass Degenerative joint disease of left hip Degenerative joint disease of right hip Right knee pain Overweight Vitamin D deficiency disease Surgical History Surgical History S/P total hip arthroplasty RT TAMMY 09/21/24- Dr. Santiago H/O: hysterectomy Family History Family History Unknown Arthritis Social History Social History (Reviewed 10/31/24 @ 11:11 by CYNDEE Cooper Smoking packs per day: 0.5 Smoking cigarettes per day: 10.0 Years smoked: 10 Smoking pack-years: 5.00 Smoking status: Former smoker Smoking end date: 06/29/77 Additional smoking assessment comments: Denies any Alcohol intake: never Alcohol use details: occasionally Substance use: never Substance use type: does not use Do You Feel Safe in your Home?: Yes Lack of Transportation: No Lack of Food: Never True Current Housing: Decline to Answer Concerned About Future Housing: Decline to Answer Difficulty Paying Gas/Electric Bills: Decline to Answer Difficulty Paying for Meds: Decline to Answer Currently Unemployed: Decline to Answer Education: Decline to Answer Difficulty w/ Childcare or Family Care: Decline to Answer Living arrangements: with family Additional living arrangements comments: currently w family post op Occupation/Education: retired Spiritual care concerns: No Anes - Eval Final PreProcedure Day of Procedure 11/08/24 08:24 Patient weight: normal Heart: regular rate and rhythm Lungs: clear to auscultation Airway: Mallampati scale class II Neurological: alert and oriented Last oral intake: >/= 8 hours ASA classification: III Emergent: no Anesthetic plan: proceed Anesthesia type and monitoring: general ETT and standard monitoring Results Review: All pre-operative results and documents have been reviewed as part of the pre- operative evaluation. Informed Consent: The patient's anesthetic plan and its attendant risks and benefits were discussed with the patient/family/POA. Questions were solicited and answers provided to the satisfaction of the patient/family/POA.
[2024-11-08] MEDS: ceFAZolin 2 GM/D5W 50 ML 2 GM/50 ML BAG IVPB ×3 (08:30→23:46)
[2024-11-08] MEDS: SODIUM CHLORIDE 0.9% IV 37.7 ML, MORPHINE SULFATE INJ (*CRX) 2 MG, ROPivacaine HCL 1% 2... INFILTRATE (09:23)
[2024-11-08] MEDS: TRANEXAMIC ACID 1,000 MG/10 ML AMPUL 1000 MG IV PUSH (10:47)
--- NOTE | 2024-11-08 11:10 | W.PM.PROC2 ---
Procedure Note - Detailed Date of Procedure 11/08/24 Pre-op Diagnosis left hip DJD Post-op Diagnosis Same Procedure Performed LEFT TAMMY Surgeon Jacob Santiago MD Anesthesia General Description of Procedure THE PATIENT WAS TAKEN TO THE OPERATING ROOM IN STABLE CONDITION AND WAS PLACED IN THE LATERAL DECUBITUS AND THE LEFT LOWER EXTREMITY WAS PREPPED AND DRAPED IN THE STERILE FASHION. INCISION WAS MADE IN THE POSTERIOR LATERAL SIDE OF THE HIP, DOWN TO THE FASCIA LAYER. THE FASCIA WAS INCISED. THE HIP WAS EXPOSED. THE SHORT EXTERNAL ROTATORS WERE EXPOSED. THE SCIATIC NERVE WAS IDENTIFIED. INCISION WAS MADE THROUGH THE SHORT EXTERNAL ROTATORS AND THE CAPSULE OF THE HIP JOINT. THE HIP WAS DISLOCATED. AN OSTEOTOMY WAS MADE TO THE FEMORAL NECK ABOUT 1 CM PROXIMAL TO THE LESSER TROCHANTER. THE ACETABULUM WAS EXPOSED. THERE WAS SEVERE DJD SEEN. BEGINNING WITH A 44 REAMER THE ACETABULUM WAS REAMED TO 51 MM. A 51 MM TRIAL WAS PLACED IN 35 DEG OF ABDUCTION AND ANTEVERSION WAS IN ALIGNMENT WITH THE TRANS ACETABULAR LIGAMENT. THE FIT WAS EXCELLENT. THE TRIAL WAS REMOVED. A 52 MM BIOMET G7 COMPONENT WAS THEN TAPPED IN TO PLACE IN 35 DEG OF ABDUCTION AND ANTEVERSION IN ALIGNMENT WITH THE TRANSVERSE ACETABULAR LIGAMENT. THE FIT WAS EXCELLENT. 2 SCREWS WERE PLACED WITH GOOD BITES. THE ACETABULAR LINER WAS PLACED AND CHECKED FOR STABILITY. NEXT THE FEMUR WAS PREPARED WITH INITIAL CANAL FINDER THEN SEQUENTIAL BROACHING WITH A TAPERLOC HIP SYSTEM, UNTIL A 9 BROACH FIT WELL IN 15 OF ANTEVERSION. A 0 STANDARD OFFSET NECK WITH 36 MM HEAD TRIAL WAS PLACED. THE SHUCK TEST WAS EXCELLENT AND THE STABILITY IN FLEXION AND ROTATION WAS EXCELLENT. LEG LENGTHS WERE GROSSLY EQUAL. TRIALS WERE REMOVED. A BIOMET TAPERLOC 9 STEM WAS PLACED WITH A STANDARD OFFSET NECK. THE FIT WAS EXCELLENT IN 15 DEG OF ANTEVERSION. A 0 CERAMIC 36 MM FEMORAL HEAD WAS PLACED. THE HIP WAS TRIALED AND THE STABILITY WAS EXCELLENT WERE THE LEG LENGTHS AND THE SHUCK TEST. THE WOUND WAS IRRIGATED WITH STERILE BETADINE AND WATER FOR 3 MIN. THEN WASHED AGAIN. THE SCIATIC NERVE WAS IDENTIFIED AGAIN. THE CAPSULE AND THE EXTERNAL ROTATORS WERE APPROXIMATED WITH NUMBER 1 VICRYL. THE FASCIA WITH No 2 QUIL AND THE SUB CUTANEOUS LAYER WITH 2-0 ABSORBABLE SUTURE AND A RUNNING 3-0 SUBCUTICULAR STITCH FOR THE SKIN. DERMABOND WAS PLACED AND STERILE DRESSING WAS APPLIED. PATIENT WAS PLACED BACK ON TO THE SUPINE POSITION AND WAS EXTUBATED Estimated Blood Loss 300 Complications No immediate complications Condition Stable Disposition PACU
[2024-11-08] MEDS: fentaNYL CITRATE INJ (*CRX) 100 MCG/2 ML VIAL 25 MCG IV PUSH ×2 (11:47→11:51)
[2024-11-08] MEDS: SODIUM CHLORIDE 0.9% IV 1,000 ML 125 ML IV CONT (12:54)
[2024-11-08] MEDS: HYDROcodone/acetaminophen (*CRX) 10-325 MG TABLET 1 TAB PO ×2 (12:54→20:40)
--- NOTE | 2024-11-08 13:09 | ADMGEN ---
This patient, Rachael Segovia, was admitted to 3 Med Surg Room 309-01. Patient/family oriented to hospital policies and general routines including ID bracelet, bed and alarms, visiting hours, pain management, procedures, bathroom and other care routines, personal items, smoking policy, room service/diet, and visiting hours. Information on how to activate the Rapid Response Team has been discussed. Patient/Family are encouraged to report perceived risks to care and to ask questions if they do not understand what they are told or what they should do.
[2024-11-08] MEDS: SENNA/DOCUSATE SODIUM TABLET 2 TAB PO (17:25)
[2024-11-08] MEDS: CELECOXIB 200 MG CAPSULE PO (17:25)
[2024-11-08] MEDS: oxyCODONE/ACETAMINOPHEN (*CRX) 5-325 MG TABLET 1 TABLET PO ×2 (17:28→23:50)
[2024-11-08] MEDS: ACETAMINOPHEN 500 MG TABLET PO (20:39)
[2024-11-08] MEDS: ASPIRIN 325 MG ENTERIC TABLET PO (20:39)
[2024-11-08] MEDS: FAMOTIDINE 20 MG TABLET PO (20:40)
[2024-11-09 01:41] VITALS: BP 104/49; PULSE 80; RESP 16; TEMP 36.2; O2SAT 97
[2024-11-09 05:39] VITALS: BP 111/86; PULSE 88; RESP 16; TEMP 35.8; O2SAT 97
[2024-11-09 05:43] LABS: Basophils Percent Auto 0.3 % (0.2-1.2); Eosinophils Percent Auto 0.1 % (0-4.4); Hemoglobin 8.4 g/dL (12.0-15.0); Immature Granulocyte Absolute 0.05 K/mm3 (0.00-0.031); Immature Granulocyte Percent A 0.5 % (0-0.5); Lymphocytes Absolute Auto 1.84 K/mm3 (0.9-3.2); Lymphocytes Percent Auto 17.2 % (18.3-44.2); Mean Corpuscular Hemoglobin 26.3 pg (26-34); Mean Corpuscular Volume 87.8 fl (80-100); Mean Platelet Volume 9.4 fl (7.4-10.4); Monocytes Absolute Auto 0.7 K/mm3 (0.1-0.6); Monocytes Percent Auto 6.2 % (2.6-8.5); Neutrophils Absolute Auto 8.1 K/mm3 (1.3-6.7); Neutrophils Percent Auto 75.7 % (45.5-73.1); Platelet Count Result 217 k/mm3 (150-375); Red Blood Count 3.19 M/mm3 (4.2-5.4); Red Cell Distribution Width 13.1 % (11.5-14.5); White Blood Count 10.7 K/mm3 (4.5-10.0)
[2024-11-09 05:56] LABS: Anion Gap 6 mmol/L (4-12); Blood Urea Nitrogen 18 mg/dL (7-17); Calcium 8.3 mg/dL (8.4-10.2); Carbon Dioxide 27 mmol/L (22-30); Chloride 107 mmol/L (98-107); Estimated CRCL calculation 37 ml/min; Estimated Glomerular Filt Rate > 60; Glucose 95 mg/dL (65-110); Potassium 3.9 mmol/L (3.4-5.0); Sodium 140 mmol/L (137-145)
[2024-11-09] MEDS: oxyCODONE/ACETAMINOPHEN (*CRX) 5-325 MG TABLET 1 TABLET PO (06:33)
[2024-11-09] MEDS: SENNA/DOCUSATE SODIUM TABLET 2 TAB PO (08:45)
[2024-11-09] MEDS: polyethylene glycoL 3350 17 GM POWD.PACK PO (08:47)
[2024-11-09] MEDS: FAMOTIDINE 20 MG TABLET PO (08:47)
[2024-11-09] MEDS: CELECOXIB 200 MG CAPSULE PO (08:47)
[2024-11-09] MEDS: ASPIRIN 325 MG ENTERIC TABLET PO (08:47)
[2024-11-09] MEDS: ceFAZolin 2 GM/D5W 50 ML 2 GM/50 ML BAG IVPB (09:39)
--- NOTE | 2024-11-09 10:50 | WPDANESPN ---
Anes - Prog Note Post-Op Date/Time: 11/09/24 10:50 Cardiovascular status: normal Respiratory status: normal Airway patency: baseline Mental status: baseline Post-Op hydration status: normal Vital Signs: Last Vital Signs Temp 35.8 C L 11/09/24 05:39 Pulse 88 11/09/24 05:39 Resp 16 11/09/24 05:39 BP 111/86 11/09/24 05:39 Pulse Ox 97 11/09/24 05:39 O2 Del Method Room Air 11/08/24 21:33 O2 Flow Rate 8 11/08/24 11:35 Pain Score (VAS): 0 I/O: Intake & Output 11/08/24 11/09/24 11/09/24 23:59 07:59 15:59 Intake Total 1290 50 Balance 1290 50 Laboratory Tests 11/09/24 04:52 11/09/24 04:52 11/09/24 04:52 WBC 10.7 H RBC 3.19 L Hgb 8.4 L D Hct 28.0 L MCV 87.8 MCH 26.3 MCHC 30.0 L RDW 13.1 Plt Count 217 MPV 9.4 Immature Gran % (Auto) 0.5 Neut % (Auto) 75.7 H Lymph % (Auto) 17.2 L [place] % (Auto) 6.2 Eos % (Auto) 0.1 Baso % (Auto) 0.3 Lymph # (Auto) 1.84 [place] # (Auto) 0.7 H Eos # (Auto) 0.0 Baso # (Auto) 0.0 Abs Immat Gran (auto) 0.05 H Absolute Neuts (auto) 8.1 H Absolute Nucleated RBC 0.000 Nucleated RBC % 0.0 Sodium 140 Potassium 3.9 Chloride 107 Carbon Dioxide 27 Anion Gap 6 BUN 18 H Creatinine 0.90 Estim Creat Clear Calc 37 Estimated GFR > 60 Glucose 95 Calcium 8.3 L Post-procedural complaints: none Patient Feedback: Patient satisfied with anesthetic care.
--- NOTE | 2024-11-09 12:41 | P.PNOP_ITS ---
Progress Note: A&P Assessment and Plan (1) S/P total hip arthroplasty: Qualifiers: Laterality: right Qualified Code(s): Z96.641 - Presence of right artificial hip joint Code(s): Z96.649 - Presence of unspecified artificial hip joint Status: Acute Assessment and Plan: POD 1 DOING WELL. GOOD PROGRESS WITH PT. OK TOP DC HOME F/U IN 3 WEEKS Subjective Subjective Date/Time Seen: 11/09/24 12:41 Interval history: POD 1 DOING WELL. NO CALF PAIN. GOOD PROGRESS WITH PT Exam Extrem: Other: VSS AFEBRILE DRESSING DRY [place] INTACT NEG HOMANS SIGN THIGH AND CALF SOFT NON TENDER Objective Data Vital Signs Vital Signs: Vital Signs - 24 hr 11/08/24 13:08 11/08/24 13:25 11/08/24 14:32 Temperature 36.2 C L Pulse Rate 71 Respiratory Rate 18 Blood Pressure 124/72 Pulse Oximetry 98 Oxygen Delivery Room Air Room Air 11/08/24 20:00 11/08/24 20:45 11/08/24 21:33 Temperature 36.4 C L Pulse Rate 91 Respiratory Rate 16 Blood Pressure 100/52 L Pulse Oximetry 95 96 Oxygen Delivery Room Air Room Air 11/08/24 22:01 11/09/24 01:41 11/09/24 05:39 Temperature 36.6 C 36.2 C L 35.8 C L Pulse Rate 88 80 88 Respiratory Rate 16 16 16 Blood Pressure 97/60 L 104/49 L 111/86 Pulse Oximetry 96 97 97 Oxygen Delivery Intake/Output Intake/Output: Intake & Output 11/06/24 11/07/24 11/08/24 11/09/24 23:59 23:59 23:59 23:59 Intake Total 1490 50 Balance 1490 50 Meds/Results Medications: Active Medications Generic Name Dose Route Start Last Admin Trade Name Freq PRN Reason Stop Dose Admin Acetaminophen 500 mg 11/08/24 12:23 11/08/24 20:39 Acetaminophen 500 Mg Tablet PO 500 mg Q6H PRN Administration Pain Rated 1-3 Hydrocodone Bitart/Acetaminophen 1 tab 11/08/24 12:23 11/08/24 20:40 Hydrocodone/Acetaminophen (*Crx) 10-325 Mg Tablet PO 1 tab Q4H PRN Administration Pain Rated 7-10 Aspirin 325 mg 11/08/24 21:00 11/09/24 08:47 Aspirin 325 Mg Enteric Tablet PO 325 mg Q12HR AJNEEN Administration Celecoxib 200 mg 11/08/24 17:00 11/09/24 08:47 Celecoxib 200 Mg Capsule PO 200 mg BID JANEEN Administration Diazepam 5 mg 11/08/24 12:23 Diazepam (*Crx) 5 Mg Tablet PO Q6H PRN Anxiety/Muscle Spasm Diphenhydramine HCl 25 mg 11/08/24 12:23 Diphenhydramine Hcl Inj 50 Mg/Ml Vial IV PUSH Q6H PRN Itching Famotidine 20 mg 11/08/24 21:00 11/09/24 08:47 Famotidine 20 Mg Tablet PO 20 mg Q12HR JANEEN Administration Hydromorphone HCl 1 mg 11/08/24 12:23 Hydromorphone Hcl Inj (*Crx) 1 Mg/Ml Syr IV PUSH Q2H PRN Breakthrough Pain Rated 7-10 or NPO Hydromorphone HCl 0.5 mg 11/08/24 12:23 Hydromorphone Hcl Inj (*Crx) 1 Mg/Ml Syr IV PUSH Q2H PRN Breakthrough Pain Rated 4-6 or NPO Ibuprofen 800 mg in 200 mls @ 400 mls/hr 11/08/24 12:23 Caldolor 800 Mg/200 Ml IVPB Q6H PRN Breakthrough Pain Rated 1-3 or NPO Naloxone HCl 0.1 mg 11/08/24 12:23 Naloxone Hcl 0.4 Mg/Ml Vial IV PUSH Q2M PRN Opiate Reversal Ondansetron HCl 4 mg 11/08/24 12:23 Ondansetron Inj 4 Mg/2 Ml Vial IV PUSH Q4H PRN Nausea And Vomiting Oxycodone/Acetaminophen 1 tablet 11/08/24 12:23 11/09/24 06:33 Oxycodone/Acetaminophen (*Crx) 5-325 Mg Tablet PO 1 tablet Q4H PRN Administration Pain Rated 4-6 Polyethylene Glycol 17 gm 11/09/24 09:00 11/09/24 08:47 Polyethylene Glycol 3350 17 Gm Powd.Pack PO 17 gm QAM JANEEN Administration Senna/Docusate Sodium 2 tab 11/08/24 17:00 11/09/24 08:45 Senna/Docusate Sodium Tablet PO 2 tab BID JANEEN Administration Radiology Results: ITS Impressions Hip X-Ray 11/08/24 11:59 IMPRESSION: No acute osseous abnormality pelvis and left hip. Left total hip arthroplasty. Labs Labs: Laboratory Results - last 24 hr 11/09/24 04:52 WBC 10.7 H RBC 3.19 L Hgb 8.4 L D Hct 28.0 L MCV 87.8 MCH 26.3 MCHC 30.0 L RDW 13.1 Plt Count 217 MPV 9.4 Immature Gran % (Auto) 0.5 Neut % (Auto) 75.7 H Lymph % (Auto) 17.2 L [place] % (Auto) 6.2 Eos % (Auto) 0.1 Baso % (Auto) 0.3 Lymph # (Auto) 1.84 [place] # (Auto) 0.7 H Eos # (Auto) 0.0 Baso # (Auto) 0.0 Abs Immat Gran (auto) 0.05 H Absolute Neuts (auto) 8.1 H Absolute Nucleated RBC 0.000 Nucleated RBC % 0.0 Sodium 140 Potassium 3.9 Chloride 107 Carbon Dioxide 27 Anion Gap 6 BUN 18 H Creatinine 0.90 Estim Creat Clear Calc 37 Estimated GFR > 60 Glucose 95 Calcium 8.3 L
== END 2024-11-09 14:45 | disposition home health service (06) ==
LOC: ANHSURGERY 06:31 → ANH3MEDSUR 12:26
PROVIDERS: PCP Emergency Medicine; Visit Provider Orthopaedic Surgery
PROC: (CPT 27130; principal; 2024-11-08 08:30)
DX: M16.12 Unilateral primary osteoarthritis, left hip (principal); Z79.899 Other long term (current) drug therapy
CPT/HCPCS: 27130; 36415; 73502; 80048; 85025; 97110; 97116; 97161; 97165; 97530; 97535; A9270; C1776; J0171; J0690; J1100; J1885; J2003; J2270; J2405; J2704; J2795; J3010; J7030; J7120

== ENCOUNTER 2024-12-08 14:13 | Outpatient (CLI) | payer MEDICARE, SELFPAY ==
--- NOTE | ~2024-12-08 | MM_ITS ---
EXAMINATION: MM screening bertha BI w nataliya HISTORY: Screening TECHNIQUE: Craniocaudal and mediolateral oblique 3-D tomosynthesis images were obtained and synthetic 2-D images were generated. CAD analysis was submitted and interpreted. COMPARISON: Comparison to multiple prior studies sequentially, with oldest reviewed study dated 05/29. BREAST PARENCHYMAL COMPOSITION: Not dense: There are scattered areas of fibroglandular density. FINDINGS: There is no evidence of suspicious mass, calcification, or architectural distortion to sugg est malignancy in either breast. There has been no suspicious interval change. IMPRESSION: 1. No mammographic evidence of malignancy. 2. Recommend routine screening mammography in one year. BI-RADS Category 1: Negative Reviewed, dictated and finalized at location B.
--- OUTSIDE RECORDS SUMMARY | 2024-12-08 14:50 | XMS_ITS | Continuity of Care Document ---
Author Organization [facility] Address [address] [place] [address] [address] [facility] [address] [place] [address] Phone Care Team Providers Care Technical Cable Jointer Name Role Phone Dewey Emery Unavailable Unavailable Advance Directives Directive Yes / No Effective Date File Name No Information Encounters Encounter Description Practice Location Reason(s) For Visit Diagnoses Date Provider Providers Copied on Encounter [facility], [address] [place] [address] [address], [place], [place], [id number], [place] tel:[phone] [facility] No Information October-0 7-200 3 Doisy Edward. [address] , [address], [place], [address], [place]. tel:[phone] Family History Family Member Type Diagnosis Age At Onset No Information Payers Payer name Insurance type Covered libertarian ID Authoriza tion(s) BCBS [place] Commercial BL [id number] Social History Type Description Quantity Date Captured [...]
== END 2024-12-08 14:14 | disposition home or self-care (01) ==
LOC: ANHIMG 14:15
PROVIDERS: PCP Emergency Medicine; Visit Provider Emergency Medicine
DX: Z12.31 Encounter for screening mammogram for malignant neoplasm of breast (principal)
CPT/HCPCS: 77063; 77067